=== PATIENT | male | born 1950 | race Caucasian/White ===

== ENCOUNTER 2016-10-01 20:54 | Inpatient (IN) | payer MEDICARE ==
--- NOTE | ~2016-10-01 | IDS ---
Interim Discharge Summary [facility] [address] [place]. [address] NAME: MCKAY CHU JR : 54 STATUS : ADM IN PAT#: [id number] AGE: 66 ADM/REG DATE : 10/01/16 MR#: [id number] REPORT SERV DATE: 10/05/16 DICTATED BY: DAVID ZULUAGA DATE: 10/05/16 REPORT STATUS : Draft TRANSCRIBED BY: MODL DATE: 10/05/16 ADMISSION DATE: 10/01/2016 DISCHARGE DATE: COMPRESSOR MECHANIC BUS: Tommy Colon MD, Neurology. PROBLEM LIST: 1. Encephalopathy, unclear etiology. 2. Diabetes mellitus type 2, uncontrolled with A1c 13.7%. 3. Fatty liver. 4. Pancytopenia. 5. Bipolar disorder. 6. 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 7. History of previous chronic systolic congestive heart failure. Current ejection fraction of 55%. 8. History of Crohn disease. 9. History of hypertension. 10.Status post acute kidney injury with hyperkalemia, resolved. 11.History of coronary stenting. 12.Bipolar disorder. HISTORY: This patient was traveling with family in [place], reportedly at one point in time, may have mixed up his day and night medications and began to not feel well, having some report of slurred speech, confusion was noted by family, so he was brought to the emergency room at [facility]. His initial labs were concerning because his sodium was 128, potassium 5.9, BUN 31, and creatinine 1.55. His liver enzymes were mildly elevated. His lactic acid was elevated at 3.6. His blood sugar was 435. His Depakote, ammonia, and lithium levels were unremarkable, but he was referred to our team for inpatient care. His blood sugars are doing better with insulin. He was too confused for the educator senior clinical to really educate him and he has been resistant initially to the idea of insulin at home. As far as his confusion, he was seen by Neurology, Dr. Colon, and his evaluation for confusion included MRI and MRA of brain which revealed chronic small vessel changes, but no acute infarction. 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 MRA of the [place], otherwise, normal. MRA of the neck was unremarkable. Abdominal ultrasound revealed a markedly fatty liver. There was a hypoechoic area in the left lobe and some gallstones. There was concern that he might have cirrhosis with his pancytopenia. The patient's CT of abdomen and pelvis on 10/03/2016 revealed fatty liver and cholelithiasis, but no abnormalities were otherwise noted. The patient's Depakene level was less than 3, lithium level was 1.13, serum lactic acid was elevated at 3.6, and a followup the next day was 1.0. Procalcitonin was initially elevated at 2.75, followup 1.41, Interim Discharge Summary [facility] [address] [place]. [address] NAME: MCKAY CHU JR : 54 STATUS : ADM IN PAT#: [id number] AGE: 66 ADM/REG DATE : 10/01/16 MR#: [id number] REPORT SERV DATE: 10/05/16 DICTATED BY: DAVID ZULUAGA DATE: 10/05/16 REPORT STATUS : Draft TRANSCRIBED BY: MODBull DATE: 10/05/16 subsequently 1.10. Because of his initial presentation with lactic acid, we have had him on antibiotics, but to this point, his cultures of blood have had no growth and his urinalysis from admission only showed glucosuria and rare bacteria. Neurology has been considering a lumbar puncture for further analysis, but they state they may not proceed with that if he continues to clear neurologically. His confusion and agitation have improved. He still does have slight myoclonus. He is very cooperative, much more calm. His RPR was nonreactive. Urine drug screen was negative. We have Psychiatry consulted and anticipated to see him on 10/06/2016. On the evening of 10/04/2016, he developed abdominal pain in the periumbilical area, very intense. He got some Mylanta p.r.n. and Levsin, which he reported gave him some improvement. On that same day, he has had three bowel movements. We have put him on lactulose because his serum ammonia level had been mildly elevated. However, after the abdominal pain started, he has had no further bowel movements. He is passing gas, but he is distended and tympanic, so we are getting a CT scan to see if he has a partial small bowel obstruction. He has had prior surgery in his left groin for hernia. There is no sign of hernia on physical exam, standing on either left or right side, but he is tympanic with hypoactive bowel sounds and mildly tender. We will also ask his GI, Dr. Silverman, to see him as well. At some point in time, we are going to have to either train him on insulin if he is agreeable or try oral agents and have his PCP follow him. Currently, it sounds like he has been treating his GI, Dr. Silverman, as a PCP, so probably it would be banda for him to have a PCP arranged for in the future. RSG/MODL David Zuluaga M.D. / [id number] CC: David Zuluaga M.D.
--- NOTE | ~2016-10-01 | ECH ---
Echocardiogram [address] [address] NAME: MCKAY CHU JR : 54 STATUS : ADM IN PAT#: [id number] AGE: 66 ADM/REG DATE : 10/01/16 MR#: [id number] REPORT SERV DATE: 10/03/16 DICTATED BY: ANNY GAO DATE: 10/02/16 REPORT STATUS : Draft TRANSCRIBED BY: MODL DATE: 10/02/16 ORDERING: Dr. Porras. INDICATIONS: Possible stroke. STUDY QUALITY: Good. MEASUREMENTS (in cm) Aortic Root = 3.4. Septal Wall = 1.1 Posterior Wall = 1.1 LV Diastolic = 5.2 LV Systolic = 3.6 Left Atrium = 4.1 LALO: 23 mL/m square. LVEF: By English's method 52% (may differ from visual estimation of LVEF). E/A: 1.2. 2D DOPPLER: 1. Aortic Valve: Trileaflet with normal excursion. 2. Aortic Root: Normal. 3. Mitral Valve: Morphologically normal without prolapse. 4. Tricuspid Valve: Morphologically normal without prolapse. 5. Pulmonic Valve: Grossly normal. 6. Left Ventricle: No high-grade segmental wall motion abnormalities. Ejection fraction is estimated to be in the range of 55%. 7. Right Ventricle: Normal. 8. Pericardial Space: No effusion. 9. Intracardiac Masses: None. 10.Other: None. DOPPLER/COLOR FLOW: 1+ MR. 2+ MR. 1+ TR. 1+ MO. Bubble study does not demonstrate transseptal flow at rest nor during Valsalva. FINAL IMPRESSION: 1. Normal LV wall thickness and size. 2. Normal LVEF without segmental wall motion abnormalities. 3. Normal diastolic function. 4. Mild valvular regurgitations as defined. 5. No evidence of transatrial septal flow. /MODL Anny Gao M.D. Echocardiogram [address] [address] NAME: MCKAY CHU : 54 STATUS : ADM IN PAT#: [id number] AGE: 66 ADM/REG DATE : 10/01/16 MR#: [id number] REPORT SERV DATE: 10/03/16 DICTATED BY: ANNY GAO DATE: 10/02/16 REPORT STATUS : Draft TRANSCRIBED BY: KIANNA DATE: 10/02/16 / [id number] CC: Tyrone Zuluaga M.D.
--- NOTE | ~2016-10-01 | HP ---
History And Physical [place] [address] [facility] [place]. [address] NAME: MCKAY CHU JR : 54 STATUS : ADM Thais PAT#: [id number] AGE: 66 ADM/REG DATE : 10/01/16 MR#: [id number] REPORT SERV DATE: 10/02/16 DICTATED BY: ADELE HERRON DATE: 10/01/16 REPORT STATUS : Draft TRANSCRIBED BY: MODL DATE: 10/01/16 DATE OF ADMISSION: 10/01/2016 POINT OF ENTRY: [facility] Emergency Department. PRIMARY CARE PHYSICIAN: Dr. Bob Silverman. PRIMARY CHESTNUT TANNER: Dr. Gao. PRIMARY PSYCHIATRIST: Dr. Glass. CHIEF COMPLAINT: Altered mental status and slurred speech. HISTORY OF PRESENT ILLNESS: Mr. Chu is a 66-year-old gentleman with a history of bipolar disease, coronary disease, chronic systolic congestive heart failure, and other medical comorbidities, who presents to the emergency department today with reports of difficulties speaking as well as confusion. The patient states that he went out of town on a trip to [facility] with his brother over the weekend. At some point during the trip, the patient took his evening medications during the day time. Shortly after that medication misadministration, the patient started to generally feel unwell. When asked for specifics, he stated that he was having difficulty speaking, described as slurred speech. He denied any fevers, night sweats, chills, chest pain, palpitations, shortness of breath, cough, sputum production, abdominal pain, nausea, vomiting, diarrhea, constipation, dysuria, lower extremity edema, melena, hematochezia, hemoptysis, or hematemesis. His sister who was at bedside states that even over the past 12 hours she has noted that his slurred speech has improved dramatically as is his confusion. Initial evaluation in the emergency department notable for a CT scan of the brain that was unremarkable. Labs markedly abnormal including a sodium of 128, potassium 5.9, evidence of dehydration with a BUN of 31, creatinine 1.55. He has also had some mild transaminitis as well as mild elevated lactic acid level of 3.6. His Depakote, ammonia level, and lithium levels were all unremarkable. His sugar also elevated at 435. The patient was given a liter of IV fluids and admitted to the Hospitalist Service. REVIEW OF SYSTEMS: Comprehensive review of systems otherwise negative unless listed in history of present illness. PREVIOUS MEDICAL HISTORY: 1. Bipolar disease. 2. Crohn disease. No longer on active therapy. 3. Eji-huyajyn-ixbzldjak diabetes mellitus type 2. No longer on active medications. 4. Hypertension. History And Physical [address] [place]. [address] NAME: MCKAY CHU JR : 54 STATUS : ADM Thais PAT#: [id number] AGE: 66 ADM/REG DATE : 10/01/16 MR#: [id number] REPORT SERV DATE: 10/02/16 DICTATED BY: ADELE HERRON DATE: 10/01/16 REPORT STATUS : Draft TRANSCRIBED BY: KIANNA DATE: 10/01/16 5. Coronary artery disease with prior PCI. 6. Chronic systolic congestive heart failure with last ejection fraction of 45%. 7. 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 8. History of right brainstem cerebrovascular accident. 9. Chronic left bundle-branch block. 10.Diabetic neuropathy. SURGICAL HISTORY: 1. Cardiac PCI. 2. Hernia repair. ALLERGIES: PENICILLIN AND SULFA DRUGS. HOME MEDICATIONS: 1. Xanax 0.5 mg q.i.d. p.r.n. 2. Aspirin 81 mg daily. 3. Carvedilol 25 mg b.i.d. 4. Plavix 75 mg daily. 5. Depakote 500 mg at bedtime. 6. Cymbalta 90 mg daily. 7. [place] 625 mg at bedtime. 8. Losartan 100 mg daily. 9. Nitroglycerin 0.4 mg sublingual p.r.n. 10.Seroquel 50 mg at bedtime. 11.Rosuvastatin 10 mg daily. 12.Ambien 10 mg at bedtime. SOCIAL HISTORY: He does smoke about a half pack per day. Occasional alcohol intake. Denies illicits. FAMILY MEDICAL HISTORY: Mother with coronary artery disease and diabetes. Father with coronary artery disease and dementia. Sibling with diabetes. LABS AND IMAGIN. White count 3.3, hemoglobin is 12.7, hematocrit 36.5, and platelet count is 103. INR is pending. 2. Sodium is 128, potassium 5.9, chloride 95, carbon dioxide 24, BUN 31, creatinine 1.55, glucose is 435, calcium is 8.4, protein 6.8, albumin is 2.7, bilirubin 1.0, ALT is 86, AST 111, alkaline phosphatase is 121. 3. Troponin level is less than 0.02. 4. Ammonia level is 29. [place] level is 1.13. Depakote level is undetectable. 5. Urinalysis: Spec gravity 1.016, positive glucose, positive trace ketones, but no evidence of any infection. 6. Lactic acid level 3.6. 7. EKG per my review shows left bundle-branch block with left axis deviation, but normal sinus rhythm. No evidence of any acute ischemia or infarction. No hyperacute T-wave History And Physical [address] [address] NAME: MCKAY CHU JR : 54 STATUS : ADM Thais PAT#: [id number] AGE: 66 ADM/REG DATE : 10/01/16 MR#: [id number] REPORT SERV DATE: 10/02/16 DICTATED BY: ADELE HERRON DATE: 10/01/16 REPORT STATUS : Draft TRANSCRIBED BY: KIANNA DATE: 10/01/[address] scan of the brain per overnight virtual radiology read shows no acute intracranial abnormality. 9. Chest x-ray per my review shows no acute cardiopulmonary abnormality. PHYSICAL EXAMINATION: VITAL SIGNS: Temperature is 98.0 degrees Fahrenheit, pulse is 68, respirations 12 saturating 95% on room air. Blood pressure is 87/53. On recheck, blood pressure now 103/60, pulse of 97. GENERAL: The patient is awake, alert, in no acute distress. Resting comfortably in bed. He is a well-developed, well-nourished, male. HEENT: Atraumatic and normocephalic. Moist mucous membranes. Pupils are equal, round, reactive to light and accommodation. Extraocular eye movements intact. No scleral icterus. NECK: No jugular venous distention. No carotid bruits. The patient does have a right-sided EJ IV catheter in place. CARDIAC: Regular rate and rhythm. No murmurs, rubs, or gallops. Normal S1, S2. LUNGS: Clear to auscultation bilaterally. No wheezes, rhonchi, or crackles. ABDOMEN: Soft, nontender, nondistended with good bowel sounds. No rebound, guarding, or rigidity. EXTREMITIES: Warm, perfused. No cyanosis, clubbing, or edema. SKIN: Warm and dry. PSYCH: Affect is appropriate. NEURO: Alert and oriented x3. Cranial nerves 2 through 12 grossly intact. Upper and lower strength also grossly intact. Speech is somewhat dysarthric but understandable. Gait was not assessed. ASSESSMENT: Mr. Chu is a 66-year-old gentleman who presents with a few days of generally feeling unwell as well as slurred speech and confusion and found to have evidence of hyperglycemia, transaminitis, dehydration, hyperkalemia, as well as hyponatremia. PROBLEM LIST: 1. Dysarthria, concerning for possible cerebrovascular accident versus TIA. 2. Hyperglycemia. 3. Hyponatremia. 4. Hyperkalemia. 5. Dehydration. 6. Transaminitis. 7. Pancytopenia. 8. Elevated lactic acid level. 9. History of bipolar disease. 10.History of chronic systolic congestive heart failure. PLAN: 1. Dysarthria. Differential is very broad at this time including possible CVA versus TIA versus toxic metabolic effects from his multiple electrolyte derangements versus possible medication effect versus contribution from his underlying psychiatric disease. We will address his underlying toxic metabolic derangements overnight. We will order History And Physical [address] [place]. [address] NAME: MCKAY CHU JR : 54 STATUS : ADM Thais PAT#: [id number] AGE: 66 ADM/REG DATE : 10/01/16 MR#: [id number] REPORT SERV DATE: 10/02/16 DICTATED BY: ADELE HERRON DATE: 10/01/16 REPORT STATUS : Draft TRANSCRIBED BY: MODBull DATE: 10/01/16 MRI, MRA, as well as Neurology consultation. The patient is not currently confused nor sedated, therefore, I will not adjust his psychiatric medications at this time especially in light of normal serum drug levels. 2. Hyperglycemia. The patient has a history of wxc-ktykcdh-gwzvvclgv diabetes mellitus type 2 but no longer on active medications. He will receive 5 units of IV insulin here as well as IV fluid hydration. Place him on level 2 sliding scale and check hemoglobin A1c. 3. Transaminitis, unclear etiology at this time. Checking right upper quadrant ultrasound as well as viral hepatitis panel. 4. Elevated lactic acid level. The patient did present with some mild hypotension. I suspect this is all due to hypoperfusion, which now seems to have improved. We will repeat lactic acid level after receipt of IV fluids. 5. Pancytopenia, again unclear etiology, may be medication related. Checking iron studies, folate, vitamin B12, viral hepatitis panel, as well as HIV. Continue to monitor. 6. Acute kidney injury and dehydration. Holding patient's losartan, providing IV fluid hydration, checking urine lytes. 7. Hyperkalemia. No EKG changes at this time. Place the patient on cardiac telemetry monitoring. Holding losartan. I suspect this will improve dramatically with IV fluids as well as correction of the hyperglycemia with IV insulin. 8. Hyponatremia. Again, I suspect this is mainly due to his hyperglycemia but checking urine lytes as well as serum osmolality as well as a.m. cortisol level. Providing IV fluid hydration. 9. History of bipolar disease. The patient does report some recent changes in lithium dosing but his lithium level here is within normal limits. Does not appear to have either severe depression or manic episode at this time. We will hold off on Psychiatry consultation. 10.History of chronic systolic congestive heart failure. The patient currently appears euvolemic to me at this time. Provide gentle fluid hydration. Chest x-ray is clear. We will check a BNP level. 11.DVT prophylaxis. Lovenox subcu. CODE STATUS: The patient wished to be full code. JCB/MODL Adele Herron MD / [id number] CC: Tyrone Zuluaga M.D. Christopher Perez M.D.
--- NOTE | ~2016-10-01 | DS ---
Discharge Summary [facility] [address] [place]. [address] NAME: MCKAY CHU JR : 54 STATUS : DIS IN PAT#: [id number] AGE: 66 ADM/REG DATE : 10/01/16 MR#: [id number] REPORT SERV DATE: 10/07/16 DICTATED BY: DAVID ZULUAGA DATE: 10/06/16 REPORT STATUS : Draft TRANSCRIBED BY: MODL DATE: 10/06/16 ADMISSION DATE: 10/01/2016 DISCHARGE DATE: 10/06/2016 CONSULTANTS: Dr. Colon, Neurology; Dr. Juanjose Arriaga, Psychiatry. DISCHARGE DIAGNOSES: 1. Encephalopathy, unclear etiology, but suspected to be a combination of medications and #2. 2. Bipolar disorder. 3. Fatty liver. 4. Colonic ileus. 5. Pancytopenia with some improvement near discharge. 6. 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 7. History of previous chronic systolic congestive heart failure with current ejection fraction improved to 55%. 8. History of Crohn disease. 9. Hypertension. 10.Acute kidney injury with hyperkalemia, improved, off Cozaar. 11.History of coronary stents. HISTORY: This gentleman was traveling with family in the [facility] area and reportedly at one point may have mixed up his day and night medications. May have also taken additional Xanax. He reportedly did not feel well, had some slurred speech, some confusion. Because of this, he was brought to the Emergency Room at [facility]. His initial lab assessment had sodium 128, potassium 5.9, BUN 31, creatinine 1.55. His liver enzymes were mildly elevated with an alkaline phosphatase of 121, his ALT was 86, his AST was 111. His lactic acid was elevated at 3.6, blood sugar 435. Evaro level was 1.13. His Depakene level was less than 3.0. His initial ammonia was 29. He was referred to our team for inpatient care. His blood sugars are doing better with insulin. He initially was too confused for the composition tile layer to give him much education. Now that he is no longer confused, he states he is not willing to stay any longer. He will get diabetic education in some fashion as an outpatient. He is still not willing to take insulin. He states he has a glucose meter. He will check his sugars. He will take the diabetic tablets that we are prescribing, and he will follow up with Dr. Silverman, his GI, and he is planning to get a new GI to help him with his diabetes. As far as his confusion, he was seen by Neurology, Dr. Colon. His evaluation for the confusion included MRI and MRA of the brain, which revealed chronic small vessel changes, but no acute infarction. 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 MRA of the [place] otherwise unremarkable. MRA of the neck unremarkable. Abdominal ultrasound revealed markedly fatty liver. There was a hypoechoic area in the left lobe of Discharge Summary [place] [address] [place] [place]. [address] NAME: MCKAY CHU JR : 54 STATUS : DIS IN PAT#: [id number] AGE: 66 ADM/REG DATE : 10/01/16 MR#: [id number] REPORT SERV DATE: 10/07/16 DICTATED BY: DAVID ZULUAGA DATE: 10/06/16 REPORT STATUS : Draft TRANSCRIBED BY: KIANNA DATE: 10/06/16 the liver with some gallstones. Clinically, we had some concern that he might have cirrhosis because he had pancytopenia and elevated liver enzymes, however, his CT abdomen and pelvis on 10/03/2016 just revealed fatty liver and cholelithiasis, but otherwise unremarkable. The patient's followup lactic acid level came down to normal at 1.0. His procalcitonin was initially elevated at 2.71, followup at 1.41, and subsequently 1.0. Because of the combination of elevated lactic acid and elevated procalcitonin, he was placed on antibiotic Rocephin and blood cultures were drawn. His blood cultures have had no growth. His urinalysis on admission had only rare bacteria and glucose. Neurology was considering lumbar puncture for further analysis, but as his mental status improved with time and withholding his Depakote, Neurology decided to not do the lumbar puncture. So, they restarted his Plavix thereafter. His confusion and agitation are gone. He has resolved his myoclonus. He is very calm. His RPR is nonreactive. Urine drug screen was negative. Psychiatry, Dr. Arriaga saw him and felt the patient had an unspecified delirium possibly from medication administration incorrectly as an outpatient. He felt he had bipolar disorder and he recommended him to follow up with Dr. Glass, his primary psychiatrist. We also did RPR, which was not reactive; checked hepatitis A, B, and C and HIV, all of these were not reactive. On 10/04/2016, he developed abdominal pain, distention. Mylanta and Levsin gave only minimal improvement. When I saw him, he was passing gas, but was distended and tympanic, so we did do a CT scan of the abdomen and pelvis as a repeat on 10/05/2016. It revealed mild to moderate distention of the colon to the level of the proximal sigmoid with no discrete transition zone suggesting mild large bowel ileus. No small bowel dilatation was noted. Subsegmental atelectasis or linear fibrosis right middle lobe. A 2- to 3-mm noncalcified pulmonary nodules in each lung base (this needs to be followed up by his PCP). Cholelithiasis was found, but no evidence of cholecystitis. Had normal-appearing appendix in the right lower quadrant. Trace of ascites. On 10/06/2016, he stated he was hungry. He was not nauseated. He was passing gas. He had had a bowel movement. He wanted to move from liquid diet onto solids. However, he had very little if any bowel sounds. Abdomen was still mild to moderately distended and tympanic. I recommended that he stay, let us work on that, have Dr. Silverman, his GI, see him. He stated that his abdomen did not bother him that much and he would see Dr. Silverman as an outpatient. I stressed to him that we still felt we needed to give him more diabetic education. He stated that he felt he could get that as an outpatient, and he was not willing to stay any longer. He was polite, he was calm, but he was quite definitive about this. DISCHARGE MEDICATIONS: Aspirin 81 mg daily, Coreg 25 mg b.i.d., Plavix 75 mg daily, Cymbalta 90 mg daily, lithium carbonate (Eskalith CR) 675 mg at bedtime, nicotine patch over-the- counter to try to stop smoking, Seroquel 50 mg at bedtime, Tylenol 650 q.6 hours p.r.n. pain or fever, Xanax 0.5 mg q.i.d. p.r.n. anxiety which is a chronic medicine for him, nitroglycerin 0.4 mg sublingual p.r.n. chest pain, Crestor 10 mg daily, glipizide 5 mg b.i.d. with meals, metformin 1000 mg b.i.d. Discharge Summary [address] [place]. [address] NAME: MCKAY CHU JR : 54 STATUS : DIS IN PAT#: [id number] AGE: 66 ADM/REG DATE : 10/01/16 MR#: [id number] REPORT SERV DATE: 10/07/16 DICTATED BY: DAVID ZULUAGA DATE: 10/06/16 REPORT STATUS : Draft TRANSCRIBED BY: MODL DATE: 10/06/16 We had recommend he stay off the Depakote, because while he was here, his ammonia level did go up. We are also recommending he stay off the Cozaar because he had elevated creatinine and potassium when he first came in here. I spent 57 minutes today with the patient and with discharge planning. DICTATED BY: Christopher Lu/KIANNA David Zuluaga M.D. / [id number] CC: Christopher Lu M.D. Michael Goodman, M.D. LEE SOLOMON
--- NOTE | ~2016-10-01 | CN ---
Consultation Report [facility] [address] [place]. [address] NAME: MCKAY CHU JR : 54 STATUS : ADM Thais PAT#: [id number] AGE: 66 ADM/REG DATE : 10/01/16 MR#: [id number] REPORT SERV DATE: 10/02/16 DICTATED BY: DATE: REPORT STATUS : Draft TRANSCRIBED BY: MODL DATE: 10/02/16 NEUROLOGY CONSULTATION DATE OF CONSULTATION: 10/02/2016 REASON FOR CONSULT: Confusion and dysarthria. HISTORY OF PRESENT ILLNESS: This is a 66-year-old male who presented to [facility] on 10/01/2016, secondary to confusion and dysarthria. The patient gave a story of going to a trip to [facility] with his brother. During the trip, the patient had his pill box with him but apparently has filled it incorrectly. As a result, the patient was taking his night medications during the day and the patient attributes that to be the reason for his confusion and dysarthria. The patient reports symptom improvement but does not appear to have resolution of the symptom. The patient also complains of dizzy as if he is about to pass out when standing up, otherwise, denies any fever, chill, nausea, vomiting, chest pain, or shortness of breath. The patient, other than a trip to [facility], denies any recent other long distance stress and denies any recent sick contact. The patient, other than confused medication intake, does not have any other changes in medications. The patient reports still having dizzy type of sensation when standing up, but otherwise no other complaints. REVIEW OF SYSTEMS: Negative except for those mentioned in the HPI. PAST MEDICAL HISTORY: Significant for bipolar disorder, Crohn's disease. Apparently not on any active therapy at the moment. Diabetes type 2. Hypertension. Coronary artery disease as well as history of congestive heart failure with the last EF of 45%. 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 The patient has had previous history of right brainstem stroke and baseline he is on aspirin as well as Plavix. The patient does have chronic left bundle branch block and diabetic neuropathy. FAMILY HISTORY: Significant for coronary artery disease, diabetes as well as dementia. SOCIAL HISTORY: The patient does still continue tobacco usage. He reports only occasional alcohol intake. Denies illicit drug usage. ALLERGIES: THE PATIENT REPORTS ALLERGY TO PENICILLIN WELL SULFA MEDICATION. HOME MEDICATIONS: Consist of Xanax; aspirin; Plavix; Coreg; Depakote; Cymbalta; lithium; Cozaar; nitroglycerin; Seroquel; Crestor; and Ambien. Again review of systems otherwise negative except for those mentioned in the HPI. PHYSICAL EXAMINATION: Consultation Report [facility] [address] [place]. [address] NAME: MCKAY CHU JR : 54 STATUS : ADM Thais PAT#: [id number] AGE: 66 ADM/REG DATE : 10/01/16 MR#: [id number] REPORT SERV DATE: 10/02/16 DICTATED BY: DATE: REPORT STATUS : Draft TRANSCRIBED BY: MODL DATE: 10/02/16 VITAL SIGNS: At the time of evaluation and physical examination, the patient was noted to have vital signs with T-max of 99.0, heart rate of 66 to 72, respiration of 14 to 18, blood pressure after hospital admission was 111 to 152 over 54 to 69. The patient, upon ER presentation, was noted to have hypotension with blood pressure of 87 to 98 over 46 to 53. GENERAL: The patient is otherwise well developed, well nourished, in no acute distress. CARDIOVASCULAR: Regular rate and rhythm. No carotid bruits were otherwise auscultated. PULMONARY: Examination was clear to auscultation bilaterally. NEUROLOGICAL EXAMINATION: Generally, the patient was awake, oriented to person, place, year, and month. Also, the patient was noted to have difficulties with turning off the TV using the remote and was noted to have difficulties clearly to articulate reason for hospital admission as well as history of present illness with the patient noted to have some mild word-finding difficulties at times and seems at time to be confused about what is going on. The patient was noted to have mild decreased attention span at the time of evaluation and has some difficulties with recall, but the patient is able to follow most of the two-step commands as well as simple commands. Cranial nerves 2 through 12, pupils equal, round, and reactive to light. Horizontal and vertical eye movement was noted to be intact with the patient noted to have mild decreased nasolabial fold on the left. Reports symmetrical facial sensation. Midline tongue. Normal palatal movement. Mild decreased hearing in bilateral ears. No clear asterixis was noted. Mild tremor was seen. The patient was not noted to have any overt rigidity at the time of evaluation. A 5/5 bilateral upper extremity strength and bilateral lower extremity strength was noted at the time of evaluation. Normal finger-to- nose examination without ataxia. The patient was noted to have decreased sensation in bilateral lower extremity, however deep tendon reflex was 3+ throughout. Downgoing toe on bilateral plantar reflexes. The patient was noted to have some mild ataxia at the time of evaluation. LABORATORY STUDIES: Demonstrated white blood cell count of 3.8, hemoglobin of 11.6, and hematocrit of 102. The patient was noted to have a procalcitonin level of 2.75, sodium of 136, potassium of 4.0, chloride 104, bicarb of 19, BUN of 20, creatinine of 0.85, glucose of 243, and calcium of 8.2. Serum cholesterol of 96, HDL 114, LDL of 28, and triglyceride of 270. Serum ammonia level of 29. The patient was noted to have folate of 28.6, and vitamin B12 was 695. Serum TSH of 5.92. Hepatitis panel is negative. HIV is negative. The patient's urine drug screen is otherwise negative with urinalysis demonstrated negative leukocyte esterase, negative nitrite. The patient's MRI of the brain otherwise demonstrated no acute process with MRA of the head and neck demonstrated no significant vascular stenosis. IMPRESSION: 1. Encephalopathy improved but still appeared to be somewhat confused at the time of evaluation with the patient noted to have some word-finding difficulties as well as difficulties to articulate clear HPI. The patient presented to [facility] with hypotension, systolic blood pressure in the 80s although has improved overnight. The patient in addition was also noted to have elevated procalcitonin level. Concern for possible alcohol infection. We will check laboratory study. We will hold Plavix in case the patient requires lumbar puncture. Consultation Report [facility] [address] [place]. [address] NAME: MCKAY CHU : 54 STATUS : ADM Thais PAT#: [id number] AGE: 66 ADM/REG DATE : 10/01/16 MR#: [id number] REPORT SERV DATE: 10/02/16 DICTATED BY: DATE: REPORT STATUS : Draft TRANSCRIBED BY: MODL DATE: 10/02/16 2. We will also obtain EEG as well as orthostatic vitals. RECOMMENDATIONS: 1. Hold Plavix. 2. EEG. 3. TSH, free T4, procalcitonin level as well as serum RPR with morning labs. 4. We will check orthostatic vitals every shift. 5. May consider lumbar puncture. [facility]/MODL Tommy Colon MD / [id number] CC: Tyrone Zuluaga M.D.
--- NOTE | ~2016-10-01 | CN ---
Consultation Report [facility] [address] [place]. [address] NAME: MCKAY CHU JR : 54 STATUS : ADM IN PAT#: [id number] AGE: 66 ADM/REG DATE : 10/01/16 MR#: [id number] REPORT SERV DATE: 10/06/16 DICTATED BY: JUANJOSE ENGEL DATE: 10/06/16 REPORT STATUS : Draft TRANSCRIBED BY: KIANNA DATE: 10/06/16 PSYCHIATRIC CONSULTATION I REVIEWED THE PATIENT'S CURRENT AND OLD MEDICAL RECORD. DATE OF CONSULTATION: 10/06/2016 HISTORY OF PRESENT ILLNESS: He was admitted with dysarthria and confusion. I was consulted to address his psychotropic regimen. PAST PSYCHIATRIC HISTORY: He has experienced recurring episodes of depression and hypomania for over 40 years. He reported one suicide attempt by overdose at the age of 23. In recent years, he has been followed by psychiatrist, Nic Glass M.D. HOME MEDICATION LIST: Included Xanax 0.5 mg q.i.d. p.r.n., Depakote 500 mg q.h.s., Cymbalta 90 mg daily, Eskalith CR 675 mg q.h.s., Seroquel 50 mg q.h.s., and Ambien 10 mg q.h.s. Since this admission, his Depakote has been discontinued because of a mild elevation of SGOT and alkaline phosphatase. Since his admission, his confusion and dysarthria have improved, and he is now back to baseline. He is most anxious for discharge to home. SOCIAL HISTORY: He lives by himself in [place], [place]. FAMILY HISTORY: His father may have had mood issues. MENTAL STATUS: He was very pleasant and cooperative in attitude. He was oriented to date, location, and persons. His mood was euthymic. His affect was full and appropriate. His thinking was logical. He had no delusions. He had no hallucinations. DIAGNOSES: 1. Delirium, now improved and back to baseline. 2. Bipolar disorder II. RECOMMENDATIONS: He thinks he might have mistakenly overdosed on his medications while he was on a trip to [facility]. He said he might have taken more Xanax than usual or perhaps he reversed his morning and bedtime dosing. I think this is the most likely explanation for the delirium, which is now improved. I agree with holding Depakote. It can be restarted later if needed for mood control, at Dr. Glass's discretion. He can be discharged to home from a psychiatric viewpoint. INOCENTE/KIANNA Juanjose Consultation Report [place] [id number] [facility] [place]. [address] NAME: MCKAY CHU JR : 54 STATUS : ADM IN PAT#: [id number] AGE: 66 ADM/REG DATE : 10/01/16 MR#: [id number] REPORT SERV DATE: 10/06/16 DICTATED BY: JUANJOSE ENGEL DATE: 10/06/16 REPORT STATUS : Draft TRANSCRIBED BY: MODL DATE: 10/06/16 Christopher Engel / [id number] CC: Christopher Lu M.D. LEE SOLOMON, MD
[2016-10-01 19:43] LABS: BASOPHILS 0.3 %; BASOPHILS ABSOLUTE 0.01 10/3/uL (0.0-0.16); EOSINOPHILS 0 %; ER CBC TAT 0 Hrs 11 Mins; HEMATOCRIT 36.5 % (40.0-51.0); HEMOGLOBIN 12.7 g/dL (13.6-17.8); IMMATURE GRANULOCYTES 0.6 %; IMMATURE GRANULOCYTES ABSOLUTE 0.02 10/3/uL (0.0-0.11); LYMPHOCYTES 18.1 %; MANUAL DIFF NO %; MEAN CORPUS HGB CONC 34.8 g/dL (32.0-36.0); MEAN CORPUSCULAR HEMOGLOB 30.4 pg (26.0-34.0); MEAN CORPUSCULAR VOLUME 87.3 fL (80-100); MEAN PLATELET VOLUME 9.7 fL (9.2-13.0); MONOCYTES 5.7 %; MONOCYTES ABSOLUTE 0.19 10/3/uL (0.21-1.20); NEUTROPHILS 75.3 %; NEUTROPHILS ABSOLUTE 2.49 10/3/uL (2.02-8.40); PLATELET COUNT 103 10/3/uL (150-400); RBC DISTRIBUTION WIDTH 12.7 % (12.0-16.0); RED CELL COUNT 4.18 10/6/uL (4.7-6.1); WHITE BLOOD CELLS 3.3 10/3/uL (4.5-10.5)
[2016-10-01 20:00] LABS: CALCIUM, SERUM 8.4 MG/DL (8.5-10.4); CHLORIDE, SERUM 95 MMOL/L (96-112); CREATININE 1.55 MG/DL (0.70-1.30); GFR AFRICAN AMERICAN 54 ML/MIN (>=60); GFR NON AFRICAN AMERICAN 47 ML/MIN (>=60); SGPT(ALT) 86 U/L (5-65); SODIUM, SERUM 128 MMOL/L (135-148); TOTAL PROTEIN 6.8 G/DL (6.0-8.5); TROPONIN I <0.02 NG/ML (<0.05)
[2016-10-01 20:01] LABS: A/G RATIO 0.7 (0.7-1.9); ALBUMIN 2.7 G/DL (3.5-5.0); ALKALINE PHOSPHATASE 121 U/L (45-117); BUN (BLOOD UREA NITROGEN) 31 MG/DL (6-23); CO2 (CARBON DIOXIDE) 24 MMOL/L (24-34); GLOBULIN 4.1 G/DL (2.5-4.1); GLUCOSE, SERUM 435 MG/DL (60-99); POTASSIUM, SERUM 5.9 MMOL/L (3.5-5.3); SGOT(AST) 111 U/L (5-40)
[~2016-10-01 20:54] MED LIST: AMARYL1 MG PO; AMB10 PO; ASAB PO; ASABAYER PO; BRILINTA90 MG PO; COREG12 PO; COZAAR100 MG PO; CRESTOR10 PO; CRESTOR20 MG PO; CYMBALTA60 PO; DEPAKOT250 PO; DEPAKOT500 PO; FISH OIL300 MG PO; GEODON20 PO; HUMIRA PEN SC; KLONO1 PO; KLONO2 PO; MULTIVITAMI1; NORV5 PO; OMEGA 3 6 9; PLAVIX PO; PROTONIX PO; SEROQUEL1C PO; VICODINTAB PO; VITAMIN D1000 UNI1 PO; VITAMIN E OTC PO; X5 PO; [UNRECOGNIZED DRUG - OTHER]
[2016-10-01] MEDS ORDERED: SEROQUEL50 MG PO (21:13)
[2016-10-01] MEDS ORDERED: CYMBALTA30 PO (21:14)
[2016-10-01] MEDS ORDERED: AMB10 PO (21:14)
[2016-10-01] MEDS ORDERED: COZAAR100 MG PO (21:15)
[2016-10-01] MEDS ORDERED: ESKACR PO (21:15)
[2016-10-01] MEDS ORDERED: CRESTOR10 PO (21:16)
[2016-10-01] MEDS ORDERED: NITROSTAT0.4 MG SL (21:16)
[2016-10-01] MEDS ORDERED: X5 PO (21:16)
[2016-10-01] MEDS ORDERED: HALF81 PO (21:17)
[2016-10-01] MEDS ORDERED: PLAVIX PO (21:17)
[2016-10-01] MEDS ORDERED: COREG25 PO (21:17)
[2016-10-01] MEDS ORDERED: DEPAKOT500 PO (21:17)
[2016-10-01 21:46] LABS: ASCORBIC ACID (UR NOT ORDER) NEG (NEG); BILIRUBIN, URINE NEGATIVE (NEG); ER URINALYSIS TAT 0 Hrs 00 Mins; KETONE, URINE 20 MG/DL (NEG); LEUKOCYTE ESTERASE(NOT OR NEG (NEG); NITRITE (URINE) NEG (NEG); WBC (NOT ORDERED) (RFLEX) 0 (0-5)
[2016-10-01 21:47] LABS: DEPAKENE (VALPROIC ACID) < 3.0 MCG/ML (50.0-100.0)
[2016-10-02 00:43] LABS: LACTATE 2.4 MMOL/L (0.3-2.4)
[2016-10-02 04:58] LABS: CREATININE, URINE 62.6 MG/DL; SODIUM, URINE 12 MEQ/L
[2016-10-02 05:08] LABS: AMPHETAMINES (NOT ORD) NEG (NEG); BARBITURATES (NOT ORDERED NEG (NEG); BENZODIAZEPINES (NOT ORD) NEG (NEG); CANNABINOIDS (THC) NEG (NEG); COCAINE (NOT ORDERED) NEG (NEG); OPIATES NEG (NEG); OSMOLALITY, URINE 414 MOSM/KG (50-1200); PHENCYCLIDINE(PCP) NEG (NEG); TRICYCLICS NEG (NEG)
[2016-10-02 08:45] LABS: BASOPHILS 0.3 %; BASOPHILS ABSOLUTE 0.01 10/3/uL (0.0-0.16); EOSINOPHILS 0.5 %; EOSINOPHILS ABSOLUTE 0.02 10/3/uL (0.0-0.53); HEMOGLOBIN 11.6 g/dL (13.6-17.8); IMMATURE GRANULOCYTES 0.3 %; IMMATURE GRANULOCYTES ABSOLUTE 0.01 10/3/uL (0.0-0.11); LYMPHOCYTES ABSOLUTE 0.91 10/3/uL (0.67-4.30); MANUAL DIFF NO %; MEAN CORPUS HGB CONC 34.1 g/dL (32.0-36.0); MEAN CORPUSCULAR HEMOGLOB 29.8 pg (26.0-34.0); MEAN CORPUSCULAR VOLUME 87.4 fL (80-100); MEAN PLATELET VOLUME 9.4 fL (9.2-13.0); MONOCYTES ABSOLUTE 0.19 10/3/uL (0.21-1.20); NEUTROPHILS 69.9 %; NEUTROPHILS ABSOLUTE 2.65 10/3/uL (2.02-8.40); PLATELET COUNT 102 10/3/uL (150-400); RED CELL COUNT 3.89 10/6/uL (4.7-6.1); WHITE BLOOD CELLS 3.8 10/3/uL (4.5-10.5)
[2016-10-02 08:57] LABS: INTERNATIONAL NORMAL RATI 1.2 UNITS (-); PARTIAL THROMBO TIME 33.6 SEC (22.5-37.2)
[2016-10-02 09:17] LABS: B NATRIURETIC PEPTIDE (BNP) 98.5 PG/ML (< 100.0)
[2016-10-02 09:35] LABS: ALBUMIN 2.5 G/DL (3.5-5.0); CALCIUM, SERUM 8.2 MG/DL (8.5-10.4); CHLORIDE, SERUM 104 MMOL/L (96-112); CPK (IF ELEVATED MB BANDS) 126 U/L (0-200); FERRITIN 2754 NG/ML (26-388); IRON BINDING CAPACITY 219 MCG/DL (250-450); IRON, SERUM 45 MCG/DL (35-150); PHOSPHORUS, SERUM 2.2 MG/DL (2.5-4.5); TRIGLYCERIDE 270 MG/DL (< 150); TROPONIN I <0.02 NG/ML (<0.05)
[2016-10-02 09:36] LABS: BUN (BLOOD UREA NITROGEN) 20 MG/DL (6-23); CHOL/HDL RATIO(NOT ORDER) 6.9 (0-5); CHOLESTEROL 96 MG/DL (< 200); CO2 (CARBON DIOXIDE) 19 MMOL/L (24-34); CREATININE 0.85 MG/DL (0.70-1.30); FOLATE 28.6 NG/ML (>5.2); GFR AFRICAN AMERICAN 107 ML/MIN (>=60); GFR NON AFRICAN AMERICAN 92 ML/MIN (>=60); GLUCOSE, SERUM 243 MG/DL (60-99); HDL CHOLESTEROL 14 MG/DL (> 39); LDL CHOLESTEROL 28 MG/DL (< 130); NON-HDL CHOLESTEROL 82 MG/DL (< 160); SODIUM, SERUM 136 MMOL/L (135-148)
[2016-10-02 09:42] LABS: HEPATITIS B SURFACE ANTIGEN NON-REACTIVE (NON-REACT)
[2016-10-02 10:09] LABS: HEPATITIS B CORE AB IGM NON-REACTIVE (NON-REAC)
[2016-10-02 10:11] LABS: HEP A ANTIBODY IGM NON-REACTIVE (NON-REACT); HIV COMBO NON-REACTIVE (NON REAC)
[2016-10-02 10:45] LABS: HEPATITIS C ANTIBODY NON-REACTIVE (NON-REACT)
[2016-10-02 10:56] LABS: GLYCOHEMOGLOBIN (HbA1c) 13.7 % (4.7-6.1)
[2016-10-02 11:28] LABS: PROCALCITONIN 2.75 ng/mL (<0.5)
[2016-10-02 16:21] LABS: TROPONIN I <0.02 NG/ML (<0.05)
[2016-10-02 16:23] LABS: CK-MB 2.2 NG/ML; CPK 103 U/L (0-200)
[2016-10-03 07:11] LABS: BASOPHILS 0.3 %; BASOPHILS ABSOLUTE 0.01 10/3/uL (0.0-0.16); EOSINOPHILS 2.8 %; EOSINOPHILS ABSOLUTE 0.11 10/3/uL (0.0-0.53); HEMATOCRIT 32.1 % (40.0-51.0); HEMOGLOBIN 11.1 g/dL (13.6-17.8); IMMATURE GRANULOCYTES 0.3 %; IMMATURE GRANULOCYTES ABSOLUTE 0.01 10/3/uL (0.0-0.11); LYMPHOCYTES 31.4 %; LYMPHOCYTES ABSOLUTE 1.25 10/3/uL (0.67-4.30); MEAN CORPUS HGB CONC 34.6 g/dL (32.0-36.0); MEAN CORPUSCULAR HEMOGLOB 30.2 pg (26.0-34.0); MEAN CORPUSCULAR VOLUME 87.2 fL (80-100); MEAN PLATELET VOLUME 9.1 fL (9.2-13.0); MONOCYTES 8.8 %; MONOCYTES ABSOLUTE 0.35 10/3/uL (0.21-1.20); NEUTROPHILS 56.4 %; NEUTROPHILS ABSOLUTE 2.25 10/3/uL (2.02-8.40); PLATELET COUNT 101 10/3/uL (150-400); RBC DISTRIBUTION WIDTH 12.9 % (12.0-16.0); RED CELL COUNT 3.68 10/6/uL (4.7-6.1)
[2016-10-03 07:12] LABS: MANUAL DIFF NO %
[2016-10-03 07:31] LABS: A/G RATIO 0.7 (0.7-1.9); ALBUMIN 2.4 G/DL (3.5-5.0); CALCIUM, SERUM 8.5 MG/DL (8.5-10.4); CHLORIDE, SERUM 107 MMOL/L (96-112); CREATININE 0.74 MG/DL (0.70-1.30); GFR AFRICAN AMERICAN 113 ML/MIN (>=60); GFR NON AFRICAN AMERICAN 97 ML/MIN (>=60); GLOBULIN 3.5 G/DL (2.5-4.1); POTASSIUM, SERUM 3.6 MMOL/L (3.5-5.3); SGOT(AST) 41 U/L (5-40); SGPT(ALT) 57 U/L (5-65); SODIUM, SERUM 138 MMOL/L (135-148); TOTAL PROTEIN 5.9 G/DL (6.0-8.5)
[2016-10-03 07:33] LABS: ALKALINE PHOSPHATASE 140 U/L (45-117); BUN (BLOOD UREA NITROGEN) 12 MG/DL (6-23); CO2 (CARBON DIOXIDE) 25 MMOL/L (24-34); GLUCOSE, SERUM 147 MG/DL (60-99); TOTAL BILIRUBIN 0.3 MG/DL (0-1.2)
[2016-10-03 08:37] LABS: PROCALCITONIN 1.41 ng/mL (<0.5)
[2016-10-04 05:02] LABS: BASOPHILS 0.2 %; BASOPHILS ABSOLUTE 0.01 10/3/uL (0.0-0.16); EOSINOPHILS 2.7 %; EOSINOPHILS ABSOLUTE 0.12 10/3/uL (0.0-0.53); HEMATOCRIT 33.6 % (40.0-51.0); HEMOGLOBIN 11.3 g/dL (13.6-17.8); IMMATURE GRANULOCYTES 0.5 %; IMMATURE GRANULOCYTES ABSOLUTE 0.02 10/3/uL (0.0-0.11); LYMPHOCYTES 31.3 %; LYMPHOCYTES ABSOLUTE 1.37 10/3/uL (0.67-4.30); MEAN CORPUS HGB CONC 33.6 g/dL (32.0-36.0); MEAN CORPUSCULAR HEMOGLOB 29.7 pg (26.0-34.0); MEAN CORPUSCULAR VOLUME 88.2 fL (80-100); MEAN PLATELET VOLUME 9.2 fL (9.2-13.0); MONOCYTES 8.7 %; MONOCYTES ABSOLUTE 0.38 10/3/uL (0.21-1.20); NEUTROPHILS 56.6 %; NEUTROPHILS ABSOLUTE 2.48 10/3/uL (2.02-8.40); RED CELL COUNT 3.81 10/6/uL (4.7-6.1); WHITE BLOOD CELLS 4.4 10/3/uL (4.5-10.5)
[2016-10-04 05:07] LABS: MANUAL DIFF NO %; PLATELET COUNT 135 10/3/uL (150-400)
[2016-10-04 05:11] LABS: A/G RATIO 0.7 (0.7-1.9); ALBUMIN 2.6 G/DL (3.5-5.0); CALCIUM, SERUM 8.7 MG/DL (8.5-10.4); CHLORIDE, SERUM 107 MMOL/L (96-112); CO2 (CARBON DIOXIDE) 27 MMOL/L (24-34); CREATININE 0.69 MG/DL (0.70-1.30); GFR AFRICAN AMERICAN 116 ML/MIN (>=60); GFR NON AFRICAN AMERICAN 100 ML/MIN (>=60); GLOBULIN 3.5 G/DL (2.5-4.1); POTASSIUM, SERUM 3.3 MMOL/L (3.5-5.3); SGOT(AST) 27 U/L (5-40); SGPT(ALT) 50 U/L (5-65); SODIUM, SERUM 142 MMOL/L (135-148); TOTAL PROTEIN 6.1 G/DL (6.0-8.5)
[2016-10-04 05:13] LABS: ALKALINE PHOSPHATASE 164 U/L (45-117); BUN (BLOOD UREA NITROGEN) 8 MG/DL (6-23); GLUCOSE, SERUM 96 MG/DL (60-99); TOTAL BILIRUBIN 0.9 MG/DL (0-1.2)
[2016-10-05 18:55] LABS: BASOPHILS 0.2 %; BASOPHILS ABSOLUTE 0.01 10/3/uL (0.0-0.16); EOSINOPHILS 1.2 %; EOSINOPHILS ABSOLUTE 0.07 10/3/uL (0.0-0.53); HEMOGLOBIN 12.6 g/dL (13.6-17.8); IMMATURE GRANULOCYTES 0.2 %; IMMATURE GRANULOCYTES ABSOLUTE 0.01 10/3/uL (0.0-0.11); LYMPHOCYTES 25.2 %; LYMPHOCYTES ABSOLUTE 1.53 10/3/uL (0.67-4.30); MEAN CORPUS HGB CONC 34.1 g/dL (32.0-36.0); MEAN CORPUSCULAR HEMOGLOB 29.9 pg (26.0-34.0); MEAN CORPUSCULAR VOLUME 87.7 fL (80-100); MEAN PLATELET VOLUME 9.3 fL (9.2-13.0); MONOCYTES 8.4 %; MONOCYTES ABSOLUTE 0.51 10/3/uL (0.21-1.20); NEUTROPHILS 64.8 %; NEUTROPHILS ABSOLUTE 3.95 10/3/uL (2.02-8.40); RED CELL COUNT 4.22 10/6/uL (4.7-6.1); WHITE BLOOD CELLS 6.1 10/3/uL (4.5-10.5)
[2016-10-05 18:56] LABS: MANUAL DIFF NO %; PLATELET COUNT 193 10/3/uL (150-400)
[2016-10-05 19:11] LABS: BUN (BLOOD UREA NITROGEN) 7 MG/DL (6-23); CALCIUM, SERUM 8.8 MG/DL (8.5-10.4); CHLORIDE, SERUM 104 MMOL/L (96-112); CO2 (CARBON DIOXIDE) 25 MMOL/L (24-34); CREATININE 0.88 MG/DL (0.70-1.30); GFR AFRICAN AMERICAN 105 ML/MIN (>=60); GFR NON AFRICAN AMERICAN 91 ML/MIN (>=60); POTASSIUM, SERUM 3.4 MMOL/L (3.5-5.3); SODIUM, SERUM 137 MMOL/L (135-148); TROPONIN I <0.02 NG/ML (<0.05)
[2016-10-05 19:14] LABS: GLUCOSE, SERUM 253 MG/DL (60-99)
[2016-10-06 06:25] LABS: BASOPHILS 0.2 %; BASOPHILS ABSOLUTE 0.01 10/3/uL (0.0-0.16); EOSINOPHILS 1.6 %; EOSINOPHILS ABSOLUTE 0.09 10/3/uL (0.0-0.53); HEMOGLOBIN 12.3 g/dL (13.6-17.8); IMMATURE GRANULOCYTES 0.4 %; IMMATURE GRANULOCYTES ABSOLUTE 0.02 10/3/uL (0.0-0.11); LYMPHOCYTES 29.2 %; LYMPHOCYTES ABSOLUTE 1.65 10/3/uL (0.67-4.30); MEAN CORPUS HGB CONC 34.2 g/dL (32.0-36.0); MEAN CORPUSCULAR HEMOGLOB 30.3 pg (26.0-34.0); MEAN CORPUSCULAR VOLUME 88.7 fL (80-100); MEAN PLATELET VOLUME 8.8 fL (9.2-13.0); MONOCYTES 10.6 %; NEUTROPHILS ABSOLUTE 3.28 10/3/uL (2.02-8.40); PLATELET COUNT 196 10/3/uL (150-400); RBC DISTRIBUTION WIDTH 13.2 % (12.0-16.0); RED CELL COUNT 4.06 10/6/uL (4.7-6.1); WHITE BLOOD CELLS 5.7 10/3/uL (4.5-10.5)
[2016-10-06 06:29] LABS: MANUAL DIFF NO %
[2016-10-06 06:40] LABS: A/G RATIO 0.8 (0.7-1.9); ALBUMIN 2.7 G/DL (3.5-5.0); ALKALINE PHOSPHATASE 145 U/L (45-117); BUN (BLOOD UREA NITROGEN) 5 MG/DL (6-23); CALCIUM, SERUM 8.5 MG/DL (8.5-10.4); CHLORIDE, SERUM 108 MMOL/L (96-112); CO2 (CARBON DIOXIDE) 24 MMOL/L (24-34); CREATININE 0.57 MG/DL (0.70-1.30); GFR AFRICAN AMERICAN 126 ML/MIN (>=60); GFR NON AFRICAN AMERICAN 109 ML/MIN (>=60); GLOBULIN 3.5 G/DL (2.5-4.1); GLUCOSE, SERUM 99 MG/DL (60-99); POTASSIUM, SERUM 3.2 MMOL/L (3.5-5.3); SGPT(ALT) 35 U/L (5-65); SODIUM, SERUM 141 MMOL/L (135-148); TOTAL BILIRUBIN 0.4 MG/DL (0-1.2); TOTAL PROTEIN 6.2 G/DL (6.0-8.5)
[2016-10-06 06:42] LABS: SGOT(AST) 21 U/L (5-40)
[2016-10-06] MEDS ORDERED: HABIT14 TOP (15:58)
[2016-10-06] MEDS ORDERED: CONSTULOSE PO (15:58)
[2016-10-06] MEDS ORDERED: T PO (15:59)
[2016-10-06] MEDS ORDERED: GLUCOTROL5 PO (16:03)
[2016-10-06] MEDS ORDERED: GLUCOPHAGE1000 MG PO (16:04)
== END 2016-10-06 17:14 | disposition home or self-care (01) | DRG 92 ==
LOC: ER 20:54 → 1SO 23:14
PROVIDERS: Hospitalist; Internal Medicine; Nurse Practitioner; Psychiatry & Neurology Neurology
DX: G92 Toxic encephalopathy (principal); I50.22 Chronic systolic (congestive) heart failure; D61.818 Other pancytopenia; N17.9 Acute kidney failure, unspecified; I11.0 Hypertensive heart disease with heart failure; E11.40 Type 2 diabetes mellitus with diabetic neuropathy, unspecified; E87.1 Hypo-osmolality and hyponatremia; K56.7 Ileus, unspecified; R47.1 Dysarthria and anarthria; E11.65 Type 2 diabetes mellitus with hyperglycemia; F31.9 Bipolar disorder, unspecified; I25.10 Atherosclerotic heart disease of native coronary artery without angina pectoris; E87.5 Hyperkalemia; K76.0 Fatty (change of) liver, not elsewhere classified; I45.10 Unspecified right bundle-branch block; T50.995A Adverse effect of other drugs, medicaments and biological substances, initial encounter; Y92.9 Unspecified place or not applicable; Z79.899 Other long term (current) drug therapy; F17.210 Nicotine dependence, cigarettes, uncomplicated; Z88.2 Allergy status to sulfonamides; Z88.0 Allergy status to penicillin; Z82.49 Family history of ischemic heart disease and other diseases of the circulatory system; Z83.3 Family history of diabetes mellitus
CPT/HCPCS: 70450; 70544; 70547; 70551-52; 71010; 74176; 74178; 76700; 80048; 80053; 80061; 80069; 80074; 80164; 80178; 80305; 81001; 82140; 82533; 82550; 82553; 82570; 82607; 82728; 82746; 82962; 83036; 83540; 83550; 83605; 83690; 83735; 83880; 83930; 83935; 84145; 84300; 84439; 84443; 84484; 85025; 85610; 85730; 86592; 87040; 87389; 93005; 93306; 96361; 96374; 99285; A9270-GY; J0610; J1980; Q9967

== ENCOUNTER 2016-10-16 14:44 | Inpatient (IN) | payer MEDICARE ==
--- NOTE | ~2016-10-16 | EEG ---
Electroencephalogram [facility] [address] [facility] [place]. [address] NAME: MCKAY CHU JR : 54 STATUS : ADM IN PAT#: [id number] AGE: 66 ADM/REG DATE : 10/16/16 MR#: [id number] REPORT SERV DATE: 10/20/16 DICTATED BY: DATE: REPORT STATUS : Draft TRANSCRIBED BY: MODL DATE: 10/20/16 NEUROLOGY EEG REPORT CLINICAL INDICATIONS: Encephalopathy. DESCRIPTION: This EEG was performed using 10/20 electrode placement system. During the EEG study, symmetric background activity with generalized slowing was seen. Predominant occipital rhythm of roughly 6 hertz. Photic stimulation was performed with some trace driving response. Hyperventilation was not performed secondary to the patient's underlying medical conditions and mental status. During the EEG study, the patient achieved drowsy state. No focal abnormalities, seizure activity, or seizure discharge was otherwise noted during the EEG evaluation. INTERPRETATION: This EEG study obtained during awake and drowsy state may be considered mildly abnormal secondary to presence of mild generalized slowing. No focal abnormalities, seizure activity, or seizure discharge was otherwise noted. Clinical correlation is recommended. [facility]/MODL Tommy Colon MD / [id number] CC: Bety Garcia M.D.
--- NOTE | ~2016-10-16 | DS ---
Discharge Summary [facility] [address] [place]. [address] NAME: MCKAY CHU JR : 54 STATUS : DIS IN PAT#: [id number] AGE: 66 ADM/REG DATE : 10/16/16 MR#: [id number] REPORT SERV DATE: 10/29/16 DICTATED BY: VALERIA MADISON DATE: 10/28/16 REPORT STATUS : Draft TRANSCRIBED BY: KIANNA DATE: 10/28/16 ADMISSION DATE: 10/16/2016 DISCHARGE DATE: 10/27/2016 DISCHARGE DIAGNOSES: 1. Acute bipolar decompensation. 2. Encephalopathy secondary to acute bipolar decompensation. 3. Acute kidney injury present on arrival. 4. Diabetes type 2. 5. Hypomagnesemia. 6. Hypertension. 7. [place] toxicity present on arrival. 8. Heme-positive stool. 9. Coronary artery disease. CONSULTATIONS: 1. Neurology. 2. Psychiatry. 3. Bob Silverman M.D., with GI. DISCHARGE DISPOSITION: Debra Rodriguez. DISCHARGE MEDICATIONS: 1. Xanax 0.25 mg one tablet p.o. b.i.d., 9 and 2 p.m., and 0.5 mg p.o. q.h.s. 2. Amlodipine 10 mg one tablet p.o. daily. 3. Aspirin 81 mg one tablet p.o. daily. 4. Lipitor 20 mg one tablet p.o. daily. 5. Coreg 25 mg one tablet p.o. b.i.d. 6. Pepcid 20 mg one tablet p.o. b.i.d. 7. Daily folic acid 1 mg. 8. Sliding scale insulin. 9. Lactulose 30 mL p.o. t.i.d. 10.Seroquel 100 mg one tablet p.o. b.i.d., at 9 and 4. 11.Seroquel 300 mg one tablet p.o. q.h.s. 12.Sodium bicarb 650 mg one tablet p.o. b.i.d. 13.Levemir 15 units subcu daily. 14.Tylenol 650 mg one tablet p.o. every 6 hours. 15.Xanax 0.5 mg p.o. four times a day p.r.n. anxiety. 16.Crestor 10 mg one tablet p.o. daily. 17.Plavix 75 mg one tablet p.o. daily. PERTINENT LABS INFORMATION: [place] level within normal limits at 0.71. EEG performed mildly abnormal with mild generalized slowing. No focal seizures. Repeat lithium at 0.53 with initial presentation levels at 2.14. Discharge Summary [place] [id number] [place]. [address] NAME: MCKAY CHU JR : 54 STATUS : DIS IN PAT#: [id number] AGE: 66 ADM/REG DATE : 10/16/16 MR#: [id number] REPORT SERV DATE: 10/29/16 DICTATED BY: VALERIA MADISON DATE: 10/28/16 REPORT STATUS : Draft TRANSCRIBED BY: KIANNA DATE: 10/28/16 HOSPITAL COURSE: Please see H and P for complete details of HPI. Briefly, Mr. Chu is a 66-year-old male with history of bipolar disease, who presents with acute kidney injury, severe confusion, and possible diarrhea on admission with creatinine elevation of 4.9. The patient was noted to be down and disoriented. On arrival, workup for creatinine was performed, the patient was improved with IV fluid hydration aggressively, but due to creatinine injury the patient also had lithium levels done and monitored, and was noted to be supratherapeutic. The patient's initial encephalopathy was thought secondary to uremia along with complicated by bipolar disease, as the patient's electrolytes and labs began to normalize and improve. Further workup with Neurology began to suggest more psychiatric involvement. The patient was evaluated, then Psychiatry believed this was possible psychiatric bipolar type breakthrough. The patient had multiple medication modifications while inpatient monitored, but was recommended to have inpatient Psych evaluation after blood sugars were better controlled. Creatinine showed improvement. The patient was evaluated and heme positive stools were evaluated by Dr. Silverman. He was showing improvement with improved appetite, interaction, but was still having occasional swings in mental status. Further workup with HSV was negative. Sepsis panel was VDRL negative. Spinal tap did not show any acute infection. Protein glucose was elevated, but negative for cryptococcus. No capsulated yeast on Uma ink. The patient was more interactive, more redirectable over the last 24 to 48 hours, was seen by this publications writer, and Dr. Arriaga believed that evaluation with inpatient psych would be appropriate. D/C planning took greater than 30 minutes with arrangement, EasyPostiliation, discussion with the patient. DICTATED BY: MD CORETTA Rivers/KIANNA Valeria Madison MD / [id number] CC: Valeria Madison MD
--- NOTE | ~2016-10-16 | HP ---
History And Physical [facility] [address] [place]. [address] NAME: MCKAY HCU JR : 54 STATUS : ADM IN PAT#: [id number] AGE: 66 ADM/REG DATE : 10/16/16 MR#: [id number] REPORT SERV DATE: 10/16/16 DICTATED BY: JOSEPH GIBSON DATE: 10/16/16 REPORT STATUS : Draft TRANSCRIBED BY: MODBull DATE: 10/16/16 DATE OF ADMISSION: 10/16/2016 HISTORY OF PRESENT ILLNESS: This is a 66-year-old male, who was recently discharged from the hospital by my colleague on 10/06/2016 with encephalopathy of unclear etiology, but suspect it could be a combination of medications and bipolar disorder. He presented to [facility] because he was found confused and disoriented on the floor. He has a friend. The patient himself lives in [place], but his friend lives in [place], so the patient stays by himself and he did not respond to phone calls for several days. His friend was found him confused, sitting on a couch, covered with feces and being confused, complaining of abdominal pain. The patient cannot recall, but he says he may have nausea or he may have diarrhea, but it is unclear what symptoms he had. He said "I was sick, not doing well for several days." He also blames metformin. He does not like to be on metformin. He said it is probably related to medications. It is unclear how he was taking his medications at home. The patient has some shakiness in his hands and some dysarthria, but he right now is more awake. He denies any chest pain. He is complaining of abdominal pain all over. No shortness of breath. No cough. No fever. He said he was dizzy. He is now aged. His friend said that last admission his medications were changed. The patient also was found to have hypoglycemia. His blood sugar was in 50s on presentation as well. He looks dehydrated. The patient was started on IV fluids in the emergency room. He was given D50 and the blood sugar increased to 150 as well as his potassium was started and he was Hemoccult positive. PAST MEDICAL HISTORY: Collected from the patient's friend since the patient having constantly repetitive speech and has some memory problems, but he has history of bipolar disorder, coronary artery disease, status post stents in his heart, history of congestive heart failure. According to the last discharge summary done by Dr. Zuluaga on 10/06/2016, his ejection fraction improved to 55%. History of Crohn disease, history of encephalopathy of unclear etiology, colonic ileitis, history of pancytopenia with some improvement, history of old strokes including right brain steam and bilateral thalamic strokes, history of previous congestive heart failure with current ejection fraction 55%, history of Crohn disease followed by Dr. Silverman. No active disease now. He was on Humira before hypertension. History of acute kidney injury with hyperkalemia in the past. History of coronary stents, history of chronic shakiness, non-insulin dependent diabetes, hypertension, chronic ataxia possibly secondary to diabetic neuropathy or a brainstem stroke. SURGICAL HISTORY: Hernia repair and cardiac PCI. ALLERGIES: PENICILLIN AND SULFA. HOME MEDICATIONS: Tylenol 650 p.o. q.6 hours p.r.n., Xanax 0.5 four times daily p.r.n., aspirin 81 mg a day, carvedilol 25 p.o. b.i.d., Plavix 75 mg a day, Cymbalta 90 mg a day, glipizide 5 mg p.o. b.i.d., lactulose 30 mg p.o. three times a day, lithium carbonate 675 p.o. daily, metformin 1000 b.i.d., nitroglycerin 0.4 sublingually as needed, Seroquel 50 mg at bedtime, and Crestor 10 mg daily. History And Physical [address] [address] NAME: MCKAY CHU : 54 STATUS : ADM IN PAT#: [id number] AGE: 66 ADM/REG DATE : 10/16/16 MR#: [id number] REPORT SERV DATE: 10/16/16 DICTATED BY: JOSEPH GIBSON DATE: 10/16/16 REPORT STATUS : Draft TRANSCRIBED BY: KIANNA DATE: 10/16/16 SOCIAL HISTORY: The patient denies use of alcohol. He is a smoker, he smokes less than a pack a day. He says he drinks alcohol socially. No recreational drug use. He is retired. He lives by himself. He has a sister and a friend who is at the bedside. FAMILY HISTORY: Mother has bipolar disorder, diabetes, coronary artery disease. Father of Alzheimer disease. REVIEW OF SYSTEMS: 14-point review of systems are negative except what was stated in history of present illness. PHYSICAL EXAMINATION: GENERAL: Well-nourished, well-developed male, not in acute distress. Resting quietly. VITAL SIGNS: Blood pressure 125/56, temperature 98.9, heart rate 68, respirations 16, and oxygen saturation 98 on room air. HEENT: Head atraumatic, normocephalic. Conjunctivae clear. Pupils are equal and reactive to light and accommodation. Extraocular muscles are intact. NECK: Supple. Trachea is midline. No supraclavicular or cervical lymphadenopathy. LUNGS: Clear to auscultation bilaterally. Slightly decreased respiratory effort. CARDIOVASCULAR: Regular rate and rhythm. Point of maximal impulse not displaced. ABDOMEN: Distended, soft. There is a diffuse tenderness to palpation in the periumbilical area. There is no guarding, no rebound. EXTREMITIES: No clubbing, cyanosis, or edema. SKIN: Normal color and turgor. PSYCHIATRIC: Agitated mood and affect. NEUROLOGIC: He is awake. He is alert. Has some memory problems, forgetful, oriented in time, place, and person. He is shaky, has a tremor in his arms and legs, and repetitive speech with some aphasia. LABORATORY RESULTS: Sodium 132, potassium 2.8, chloride 100, carbon dioxide 19, BUN 43, creatinine 4.9, blood sugar 161 after he was given D50. Lipase 344, ALT 20, AST 18. Total bilirubin 0.6. Calcium 8.9. Lactic acid level 1.3. White count 11.9, hemoglobin 11.2, hematocrit 32.9, platelet count 244. He had Hemoccult-positive stool in the ER. UA did not show any evidence of UTI. Chest x-ray is ordered in the ER, but pending. CT of the brain without contrast done in the ER. No evidence of acute intracranial pathology. CT of the abdomen and pelvis done in the emergency room today without contrast, no evidence of acute GI or obstruction. Prostate is mildly enlarged. Cardiac silhouette is enlarged with coronary artery disease. There is however bibasilar infiltrate, question early pneumonia, new presentation from 10/05/2016. Ammonia level was 15. ASSESSMENT AND PLAN: This is a 66-year-old male, who was recently discharged from the hospital with a diagnosis of encephalopathy, unclear etiology, and confusion, presented with 1. Acute kidney injury likely secondary to dehydration, questionable diarrhea. 2. Hypokalemia. 3. Hypoglycemia. 4. Heme-positive stool with abdominal pain with a history of Crohn disease. History And Physical [address] [address] NAME: MCKAY CHU JR : 54 STATUS : ADM IN [facility]#: [id number] AGE: 66 ADM/REG DATE : 10/16/16 MR#: [id number] REPORT SERV DATE: 10/16/16 DICTATED BY: JOSEPH GIBSON DATE: 10/16/16 REPORT STATUS : Draft TRANSCRIBED BY: KIANNA DATE: 10/16/16 5. Confusion with shakiness. We will admit the patient to cardiac telemetry bed. We will start the patient on IV fluid hydration for his acute kidney injury as well as we replace his hypokalemia. 6. Hypoglycemia. We will check his blood sugar every one hour. If blood sugar will be below 80, he will need to receive hypoglycemia protocol with D50. 7. Abdominal pain. We will ask Dr. Silverman to see the patient especially with heme- positive stool and history of Crohn disease. 8. For hypoglycemia and diabetes control, we will ask outreach educator to see the patient. Last time, he refused to see outreach educator. 9. For confusion with a history of bipolar disorder, we will check lithium level because it can also contribute to his tremor and confusion. We will ask Neurology to evaluate this patient. He had complete neurological workup last time, so we will ask to see if there is anything else should be done. 10.Questionable pneumonia on the CT of the abdomen on the lower lobes, question early pneumonia. We put him on intravenous Rocephin. We will also do DuoNeb breathing treatment q.4 hours scheduled and do incentive spirometry. In case of diarrhea, we will check stool studies. 11.We will re-evaluate the patient tomorrow. MG/MODL Joseph Gibson M.D. / [id number] CC: Joseph Gibson M.D.
--- NOTE | ~2016-10-16 | CN ---
Consultation Report [address] [place]. [address] NAME: MCKAY CHU JR : 54 STATUS : ADM IN PAT#: [id number] AGE: 66 ADM/REG DATE : 10/16/16 MR#: [id number] REPORT SERV DATE: 10/18/16 DICTATED BY: SHIV ALFONSO DATE: 10/18/16 REPORT STATUS : Draft TRANSCRIBED BY: MODL DATE: 10/18/16 CONSULTATION DATE OF CONSULTATION: This 66-year-old man whom I am asked to see in Dr. Silverman's absence for abdominal discomfort, diarrhea, history of Crohn disease, occult blood in the stool. He has been seen by Dr. Bob Silverman in the past for Crohn disease, but has had significant medical issues and bipolar disorder that has interrupted his therapy. He took a course of Entocort in 2012. He has really been off therapy including Humira, which he had been on in the past for couple of years. Dr. Silverman saw for recent inpatient hospitalization. He is now with delirium felt to be related to his bipolar disorder and lithium. Psychiatry seen him. He is complaining some pain in the right lower quadrant as well as loose stools. He is mildly anemic and stool is positive for occult blood. He has known ileal stenosis, but there was no evidence of obstruction on CT scan. PAST MEDICAL HISTORY: 1. Crohn disease since 1993 with predominantly ileitis. 2. Ischemic cardiomyopathy. 3. Mitral regurgitation. 4. Bipolar disorder. 5. Hypertension. 6. Type 2 diabetes. PAST SURGICAL HISTORY: Status post coronary stenting. MEDICATIONS: Xanax, Lipitor, Rocephin, insulin, Seroquel, thiamin, Levemir. ALLERGIES: PENICILLIN, SULFA. FAMILY HISTORY: No GI malignancy. SOCIAL HISTORY: No tobacco or alcohol. REVIEW OF SYSTEMS: Otherwise, unremarkable. PHYSICAL EXAMINATION: GENERAL: Adequately nourished, in no acute distress, but somewhat confused. VITAL SIGNS: Afebrile. LUNGS: Clear. ABDOMEN: Soft with mild tenderness in the right lower quadrant. EXTREMITIES: No edema. Consultation Report [address] [place]. [address] NAME: MCKAY CHU JR : 54 STATUS : ADM IN PAT#: [id number] AGE: 66 ADM/REG DATE : 10/16/16 MR#: [id number] REPORT SERV DATE: 10/18/16 DICTATED BY: SHIV ALFONSO DATE: 10/18/16 REPORT STATUS : Draft TRANSCRIBED BY: KIANNA DATE: 10/18/16 LAB: Mildly anemic with hemoglobin of 10.4. BUN 26, creatinine 1.58, magnesium 1.6, sodium 143, potassium 4.2. MRI shows no acute lesions in the head, but he was uncooperative. Abdominal pelvic CT scan shows no evidence of obstruction. IMPRESSION: 1. Known Crohn disease without a lot of evidence of activity recently, but with some known ileal stenosis-it is unclear how much it is inflammatory and how much it is fiber stenotic. 2. Acute delirium related to bipolar disorder and his lithium. 3. Some chronic constipation. 4. Heme-positive stool with mild anemia in a patient on Plavix, but no evidence of gross bleeding. RECOMMENDATIONS: 1. Low residue diet due to the known ileal stenosis. 2. We will begin budesonide 9 mg daily with a plan for an 8 to 12 week course. 3. We will check a C-reactive protein. 4. We will check stool for C. difficile toxin. 5. He is not really a candidate for bowel prep or colonoscopy at this point, but will leave this up to Dr. Silverman. /KIANNA Shiv Alfonso M.D. / [id number] CC: Christopher Sanon M.D.
--- NOTE | ~2016-10-16 | IDS ---
Interim Discharge Summary [facility] [address] [place]. [address] NAME: MCKAY CHU JR : 54 STATUS : ADM IN PAT#: [id number] AGE: 66 ADM/REG DATE : 10/16/16 MR#: [id number] REPORT SERV DATE: 10/20/16 DICTATED BY: JOSEPH GIBSON DATE: 10/20/16 REPORT STATUS : Draft TRANSCRIBED BY: MODL DATE: 10/20/16 ADMISSION DATE: 10/16/2016 DISCHARGE DATE: Date of service provided from 10/16/2016 to 10/20/2016. CURRENT MEDICAL PROBLEMS: 1. Confusion/acute encephalopathy of unclear etiology, present on admission, still going on. Electroencephalography pending. LP ordered by Neurology. 2. Acute kidney injury, present on admission, resolved. 3. Bipolar disorder type 2, managed by Psychiatry. 4. [place] toxicity. [place] discontinued and there is no intention by psychiatric to restart lithium. 5. Diabetes, uncontrolled, with hypoglycemia, present on admission. The patient taken off glipizide and cannot tolerate metformin. Currently, on Levemir and NovoLog sliding scale. 6. Questionable pneumonitis. Clinically, does not have any signs of pneumonia. Antibiotic completed and discontinued. 7. History of Crohn disease in the past. Abdominal pain, present on admission, improved. 8. Heme-positive stool. Evaluated by Dr. Silverman. Dr. Silverman to specify when okay to restart aspirin and Plavix. 9. History of coronary artery disease with history of stents in the past. 10.History of Crohn's disease, history of ileal stenosis in the past. 11.History of chronic ataxia. 12.History of recent hospitalization for confusion and discharged on 10/07/2016. 13.Needs placement. CONSULTANTS ON THE CASE: 1. Neurologist, Dr. Colon. 2. Psychiatrist, Dr. Arriaga. 3. Gastroenterology, Dr. Silverman. For the details of history of present illness, refer to history of present illness dictated by me on 10/16/2016. This is a very pleasant 66-year-old male, who was admitted with acute kidney injury, severe confusion, questionable diarrhea. On admission, his creatinine was 4.9, with IV fluid hydration, it normalized, and today 0.99 as well as he was severely confused. He did know where he is and he did not know the date and time. He is still confused. He is oriented only to self. He does not have severe agitation. He is able to eat and drink. Abdominal pain, present on admission, still having mild abdominal pain and he had heme- positive stool on admission with no obvious GI bleed. His anemia was stable. His hemoglobin was stable at 10.4, so Dr. Silverman needs to specify when he is okay to restart his aspirin and Plavix. He has history of Crohn disease, but according to Dr. Silverman, he is not active so he discontinued the prednisone which was started a day before. Interim Discharge Summary [facility] [address] [facility] [place]. [address] NAME: MCKAY CHU JR : 54 STATUS : ADM IN [facility]#: [id number] AGE: 66 ADM/REG DATE : 10/16/16 MR#: [id number] REPORT SERV DATE: 10/20/16 DICTATED BY: JOSEPH GIBSON DATE: 10/20/16 REPORT STATUS : Draft TRANSCRIBED BY: KIANNA DATE: 10/20/16 Diabetes mellitus, uncontrolled. During last hospitalization, he was placed on glipizide and metformin. He presented with hypoglycemia to the emergency room and he said that he cannot take metformin, so now he is on Levemir with combination of NovoLog. The patient cannot stay by himself and his sister is trying to get him into the placement. Dr. Arriaga is also following this patient. He is not planning to restart his lithium because the lithium level was elevated. So, this patient will need to go to some long-term facility. Otherwise, he cannot stay on his own. I discontinue antibiotic since he completed five days of Rocephin. His CT of the abdomen and pelvis done on 10/16/2016 showed bibasilar infiltrates, question of early pneumonia. I do not think the patient had pneumonia. Clinically, he does not look febrile, no cough, but he completed the antibiotic. Dr. Warren will see this patient starting tomorrow morning. /MODL Joseph Gibson M.D. / [id number] CC: Christopher Sanon, MICHEAL, [facility]-
--- NOTE | ~2016-10-16 | CN ---
Consultation Report [facility] [address] [place]. [address] NAME: MCKAY CHU JR : 54 STATUS : ADM IN PAT#: [id number] AGE: 66 ADM/REG DATE : 10/16/16 MR#: [id number] REPORT SERV DATE: 10/17/16 DICTATED BY: JUANJOSE ENGEL DATE: 10/17/16 REPORT STATUS : Draft TRANSCRIBED BY: MODL DATE: 10/17/16 PSYCHIATRIC CONSULTATION DATE OF CONSULTATION: 10/17/2016 I reviewed this patient's current and old medical records. I discussed patient's status with Dr. Garcia who is his hospitalist. HISTORY OF PRESENT ILLNESS: He was found in a confused and tremulous state by a friend. His blood sugar was in the low 50s. Other lab data included BUN of 40, creatinine of 3.61, GFR of 17, serum lithium of 214, potassium of 2.8. He was complaining of abdominal pain. PAST PSYCHIATRIC HISTORY: I had seen him previously in consultation on two separate occasions. The last consultation was done about two weeks ago, when he was again admitted with confusion of unclear etiology. On that occasion, we stopped his Depakote because he had elevated liver enzymes and other evidence of a fatty liver. He continued to take the lithium carbonate 675 mg at bedtime, Seroquel 50 mg at bedtime, Cymbalta 90 mg daily, Xanax 0.5 mg q.i.d. p.r.n. He said, he usually took only two tablets of Xanax daily. We are now holding the lithium and Cymbalta because of his acute kidney injury. He is followed by Dr. Glass, a psychiatrist as an outpatient. SOCIAL HISTORY: He lives alone in [place], [place]. MENTAL STATUS: He was sitting up in a chair. He continues to show evidence of confusion with disorientation to month and year and a rambling speech. He was oriented to "[facility]." His mood was mildly anxious. His affect was appropriate. He had no delusions. He had no hallucinations. DIAGNOSES: 1. Delirium, of unclear etiology. 2. Bipolar II disorder, by history. RECOMMENDATIONS: His lithium can be permanently discontinued in view of the kidney malfunction. If his kidney function improves during this hospitalization, we can restart the Cymbalta at a reduced dose of 60 mg daily. We can continue the Seroquel 50 mg at bedtime. While he is in the hospital, we can give him a fixed dosing of Xanax at a dose of 0.25 mg b.i.d. and 0.5 mg at bedtime. I will see him for a followup visit on 10/20/2016. INOCENTE/KIANNA Juanjose Engel M.D. Consultation Report [place] [id number] [facility] [address] [place]. [address] NAME: MCKAY CHU : 54 STATUS : ADM IN PAT#: [id number] AGE: 66 ADM/REG DATE : 10/16/16 MR#: [id number] REPORT SERV DATE: 10/17/16 DICTATED BY: JUANJOSE ENGEL DATE: 10/17/16 REPORT STATUS : Draft TRANSCRIBED BY: KIANNA DATE: 10/17/16 / [id number] CC: Bety Garcia M.D.
--- NOTE | ~2016-10-16 | CN ---
Consultation Report [facility] [address] [place]. [address] NAME: MCKAY CHU JR : 54 STATUS : ADM IN PAT#: [id number] AGE: 66 ADM/REG DATE : 10/16/16 MR#: [id number] REPORT SERV DATE: 10/17/16 DICTATED BY: TYRA RODRIGUEZ DATE: 10/17/16 REPORT STATUS : Draft TRANSCRIBED BY: MODBull DATE: 10/17/16 NEUROLOGY CONSULTATION DATE OF CONSULTATION: 10/17/2016 REASON FOR CONSULTATION: Acute encephalopathy, bipolar illness, and tremor. HOSPITALIST: Dr. Carson Garcia. PSYCHIATRIST: Dr. Glass. HISTORY OF PRESENT ILLNESS: The patient is a 66-year-old male, who was hospitalized two weeks ago for acute metabolic encephalopathy of unclear etiology. It was suspected that it was due to a combination of medications and bipolar disorder. He was discharged on the 06 of October and was sent home. The patient had difficulty taking care of himself at home and yesterday he was found unresponsive, was found confused, sitting on his couch covered with feces. He was complaining of abdominal pain. The patient had diarrhea and nausea and stated that he was sick and he had not been doing well for several days. He blamed this on his metformin. He stated that he did not like taking the medication. The patient has been noncompliant with his medications and has been having difficulty taking care of himself. He lives alone. He has one brother and two sisters who check in on him. He also has a friend who lives in [place] who calls frequently. After speaking with the patient's sister, she states that the patient can no longer live by himself because of his bipolar illness and his bouts of confusion. She would like case management to look into his situation to see if possibly he could go to assisted living. 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 PAST SURGICAL HISTORY: Hernia repair and stent placement. MEDICATIONS: Home medication list includes Tylenol p.r.n., Xanax 0.5 mg four times a day p.r.n., aspirin 81 mg daily, Coreg 25 mg twice a day, Plavix 75 mg a day, Cymbalta 90 mg daily, Glucotrol 5 mg a.c. and at bedtime, lactulose 30 mg t.i.d., Eskalith-CR 675 mg at bedtime, metformin 1000 mg b.i.d., nitroglycerin 0.4 mg sublingual, Seroquel 50 mg at bedtime, and Crestor 10 mg daily. ALLERGIES: PENICILLIN AND SULFA. SOCIAL HISTORY: The patient lives alone. He is retired. He is a smoker and social drinker. Consultation Report [place] [id number] [facility] [place]. [address] NAME: MCKAY CHU JR : 54 STATUS : ADM IN [facility]#: [id number] AGE: 66 ADM/REG DATE : 10/16/16 MR#: [id number] REPORT SERV DATE: 10/17/16 DICTATED BY: TYRA RODRIGUEZ DATE: 10/17/16 REPORT STATUS : Draft TRANSCRIBED BY: KIANNA DATE: 10/17/16 FAMILY HISTORY: His mother has bipolar and has diabetes and coronary artery disease. His father from Alzheimer's dementia. He has one brother and one sister, who is healthy, and another sister who has diabetes. REVIEW OF SYSTEMS: Please refer to HPI. PHYSICAL EXAMINATION: VITAL SIGNS: The patient is a 66-year-old male, who stands 5 feet 8 inches tall and weighs 171 pounds. He is afebrile. Heart rate 63, respiratory rate 18, O2 saturations on 3 L nasal cannula 95%, and blood pressure 131/64. NEUROLOGIC: The patient is awake. He is alert. He is confused. He knows that he is at [facility], but is unaware of the time, the date, and calls the president "Dr. [place]." The patient can follow simple one-step commands, but gets confused with two and three-step commands. Pupils are 4 mm. PERRLA. Cranial nerves are relatively intact. He does have nystagmus with lateral and upward gaze. Micjzf-zh-pnut, he has slight ataxia bilaterally. Pronator drift, the patient has a parietal drift on the left. Upper extremity strength is 4/5 bilaterally. No reported sensory deficits. DTRs are 1+ in the upper extremities bilaterally. Lower extremity strength is 4/5 bilaterally. Unable to elicit patellar reflexes. Downgoing toes. No reported sensory deficits. The patient is somewhat ataxic. Has difficulty ambulating without much assistance. NECK: No carotid bruits, JVD, or thyromegaly. CHEST: Lung sounds are relatively clear, diminished in the bases. CARDIAC: Regular rate and rhythm. LABORATORY DATA: CBC is normal. BMP shows a sodium of 132, potassium of 3.4, BUN 40, creatinine 3.61, and glucose 222. Procalcitonin is 3.91. TSH 4.4. [place] 2.14. IMAGING: CT of the abdomen shows basilar infiltrates, questionable pneumonia. CT of the brain, no acute changes. ASSESSMENT/PLAN: 1. Acute metabolic encephalopathy, multifactorial in nature. The patient has lithium toxicity, level is 2.14. The medication has been placed on hold. This is most likely due to acute kidney injury. The patient has acute kidney injury most likely due to his diarrhea and volume depletion. The patient has leukocytosis, etiology unknown. His CT of the abdomen does show basilar infiltrates. The patient has bipolar illness. He is noncompliant with his medications. 2. Tremor and ataxia. This is most likely due to his lithium toxicity, however, I will send him for an MRI of the brain without gadolinium to rule out any structural causes and check additional lab work. PT/OT and case management have been consulted. Thank you again for including us in consultation. Consultation Report [address] [address] NAME: MCKAY CHU : 54 STATUS : ADM IN PAT#: [id number] AGE: 66 ADM/REG DATE : 10/16/16 MR#: [id number] REPORT SERV DATE: 10/17/16 DICTATED BY: TYRA RODRIGUEZ DATE: 10/17/16 REPORT STATUS : Draft TRANSCRIBED BY: KIANNA DATE: 10/17/16 JADYN/KIANNA Tyra Rodriguez DNP, [facility]- / [id number] CC: Christopher Sanon M.D.
[2016-10-16 13:50] LABS: BASOPHILS 0.1 %; BASOPHILS ABSOLUTE 0.01 10/3/uL (0.0-0.16); EOSINOPHILS 0.3 %; EOSINOPHILS ABSOLUTE 0.04 10/3/uL (0.0-0.53); HEMATOCRIT 32.9 % (40.0-51.0); HEMOGLOBIN 11.2 g/dL (13.6-17.8); IMMATURE GRANULOCYTES 0.3 %; IMMATURE GRANULOCYTES ABSOLUTE 0.03 10/3/uL (0.0-0.11); LYMPHOCYTES 10.3 %; LYMPHOCYTES ABSOLUTE 1.22 10/3/uL (0.67-4.30); MEAN CORPUSCULAR HEMOGLOB 28.9 pg (26.0-34.0); MEAN PLATELET VOLUME 9.3 fL (9.2-13.0); MONOCYTES ABSOLUTE 0.71 10/3/uL (0.21-1.20); NEUTROPHILS ABSOLUTE 9.88 10/3/uL (2.02-8.40); PLATELET COUNT 244 10/3/uL (150-400); RED CELL COUNT 3.87 10/6/uL (4.7-6.1)
[2016-10-16 13:51] LABS: ER CBC TAT 0 Hrs 07 Mins; MANUAL DIFF NO %; WHITE BLOOD CELLS 11.9 10/3/uL (4.5-10.5)
[2016-10-16 14:05] LABS: A/G RATIO 0.7 (0.7-1.9); ALBUMIN 2.7 G/DL (3.5-5.0); ALKALINE PHOSPHATASE 176 U/L (45-117); BUN (BLOOD UREA NITROGEN) 43 MG/DL (6-23); CALCIUM, SERUM 8.9 MG/DL (8.5-10.4); CHLORIDE, SERUM 100 MMOL/L (96-112); CO2 (CARBON DIOXIDE) 19 MMOL/L (24-34); GFR AFRICAN AMERICAN 13 ML/MIN (>=60); GFR NON AFRICAN AMERICAN 12 ML/MIN (>=60); GLOBULIN 3.9 G/DL (2.5-4.1); GLUCOSE, SERUM 161 MG/DL (60-99); POTASSIUM, SERUM 2.8 MMOL/L (3.5-5.3); SGOT(AST) 18 U/L (5-40); SGPT(ALT) 20 U/L (5-65); SODIUM, SERUM 132 MMOL/L (135-148); TOTAL BILIRUBIN 0.6 MG/DL (0-1.2); TOTAL PROTEIN 6.6 G/DL (6.0-8.5)
[2016-10-16 14:12] LABS: ASCORBIC ACID (UR NOT ORDER) NEG (NEG); BILIRUBIN, URINE NEGATIVE (NEG); ER URINALYSIS TAT 0 Hrs 09 Mins; KETONE, URINE TRACE MG/DL (NEG); LEUKOCYTE ESTERASE(NOT OR NEG (NEG); NITRITE (URINE) NEG (NEG); WBC (NOT ORDERED) (RFLEX) 5 (0-5)
[~2016-10-16 14:44] MED LIST changes: +CONSTULOSE PO; +COREG25 PO; +CYMBALTA30 PO; +ESKACR PO; +GLUCOPHAGE1000 MG PO; +GLUCOTROL5 PO; +HABIT14 TOP; +HALF81 PO; +NITROSTAT0.4 MG SL; +SEROQUEL50 MG PO; +T PO
[2016-10-16 15:19] LABS: LACTATE 1.3 MMOL/L (0.3-2.4)
[2016-10-16] MEDS ORDERED: AMB10 PO (16:17)
[2016-10-16] MEDS ORDERED: COZAAR100 MG PO (16:18)
[2016-10-16 22:27] LABS: TROPONIN I 0.03 NG/ML (<0.05)
[2016-10-16 22:28] LABS: ULTRASENSITIVE TSH 4.44 MCIU/ML (0.358-3.740)
[2016-10-16 22:54] LABS: PROCALCITONIN 3.91 ng/mL (<0.5)
[2016-10-17 01:03] LABS: POTASSIUM, SERUM 3.1 MMOL/L (3.5-5.3)
[2016-10-17 07:19] LABS: BASOPHILS 0.2 %; BASOPHILS ABSOLUTE 0.02 10/3/uL (0.0-0.16); EOSINOPHILS 1.2 %; HEMATOCRIT 31.7 % (40.0-51.0); HEMOGLOBIN 10.7 g/dL (13.6-17.8); IMMATURE GRANULOCYTES 0.2 %; IMMATURE GRANULOCYTES ABSOLUTE 0.02 10/3/uL (0.0-0.11); LYMPHOCYTES 17.9 %; LYMPHOCYTES ABSOLUTE 1.52 10/3/uL (0.67-4.30); MEAN CORPUS HGB CONC 33.8 g/dL (32.0-36.0); MEAN CORPUSCULAR VOLUME 85.9 fL (80-100); MONOCYTES 6.4 %; MONOCYTES ABSOLUTE 0.54 10/3/uL (0.21-1.20); NEUTROPHILS 74.1 %; NEUTROPHILS ABSOLUTE 6.29 10/3/uL (2.02-8.40); PLATELET COUNT 215 10/3/uL (150-400); RBC DISTRIBUTION WIDTH 12.9 % (12.0-16.0); RED CELL COUNT 3.69 10/6/uL (4.7-6.1); WHITE BLOOD CELLS 8.5 10/3/uL (4.5-10.5)
[2016-10-17 07:24] LABS: BUN (BLOOD UREA NITROGEN) 40 MG/DL (6-23); CALCIUM, SERUM 8.3 MG/DL (8.5-10.4); CHLORIDE, SERUM 109 MMOL/L (96-112); CO2 (CARBON DIOXIDE) 24 MMOL/L (24-34); POTASSIUM, SERUM 3.4 MMOL/L (3.5-5.3); SODIUM, SERUM 137 MMOL/L (135-148)
[2016-10-17 07:25] LABS: MANUAL DIFF NO %
[2016-10-17 07:34] LABS: TROPONIN I 0.02 NG/ML (<0.05)
[2016-10-17 07:35] LABS: CREATININE 3.61 MG/DL (0.70-1.30); GFR AFRICAN AMERICAN 19 ML/MIN (>=60); GFR NON AFRICAN AMERICAN 17 ML/MIN (>=60); GLUCOSE, SERUM 222 MG/DL (60-99)
[2016-10-17 11:48] LABS: C-REACTIVE PROTEIN 21.6 MG/L (<8.0)
[2016-10-17 11:49] LABS: ALBUMIN 2.6 G/DL (3.5-5.0); DIRECT BILIRUBIN 0.1 MG/DL (0.0-0.4); INDIRECT BILIRUBIN(NOT ORDER) 0.3 MG/DL (0.1-0.9); TOTAL BILIRUBIN 0.4 MG/DL (0-1.2); TOTAL PROTEIN 6.4 G/DL (6.0-8.5)
[2016-10-17 12:04] LABS: SED RATE 50 MM/HR (0-15)
[2016-10-18 09:13] LABS: HEMOGLOBIN 10.4 g/dL (13.6-17.8)
[2016-10-18 09:49] LABS: CALCIUM, SERUM 7.9 MG/DL (8.5-10.4); CHLORIDE, SERUM 117 MMOL/L (96-112); SODIUM, SERUM 143 MMOL/L (135-148)
[2016-10-18 09:51] LABS: BUN (BLOOD UREA NITROGEN) 26 MG/DL (6-23); CO2 (CARBON DIOXIDE) 16 MMOL/L (24-34); CREATININE 1.58 MG/DL (0.70-1.30); GFR AFRICAN AMERICAN 53 ML/MIN (>=60); GFR NON AFRICAN AMERICAN 46 ML/MIN (>=60); GLUCOSE, SERUM 177 MG/DL (60-99); POTASSIUM, SERUM 4.2 MMOL/L (3.5-5.3)
[2016-10-18 15:23] LABS: C-REACTIVE PROTEIN 14.9 MG/L (<8.0)
[2016-10-19 07:35] LABS: BUN (BLOOD UREA NITROGEN) 16 MG/DL (6-23); CALCIUM, SERUM 8.3 MG/DL (8.5-10.4); CHLORIDE, SERUM 113 MMOL/L (96-112); CO2 (CARBON DIOXIDE) 16 MMOL/L (24-34); CREATININE 1.18 MG/DL (0.70-1.30); GFR AFRICAN AMERICAN 75 ML/MIN (>=60); GFR NON AFRICAN AMERICAN 65 ML/MIN (>=60); GLUCOSE, SERUM 205 MG/DL (60-99); SODIUM, SERUM 143 MMOL/L (135-148)
[2016-10-19 07:45] LABS: BASOPHILS 0.3 %; BASOPHILS ABSOLUTE 0.02 10/3/uL (0.0-0.16); EOSINOPHILS 2.1 %; EOSINOPHILS ABSOLUTE 0.17 10/3/uL (0.0-0.53); IMMATURE GRANULOCYTES 0.3 %; IMMATURE GRANULOCYTES ABSOLUTE 0.02 10/3/uL (0.0-0.11); LYMPHOCYTES 14.7 %; LYMPHOCYTES ABSOLUTE 1.17 10/3/uL (0.67-4.30); MEAN CORPUS HGB CONC 33.6 g/dL (32.0-36.0); MEAN CORPUSCULAR HEMOGLOB 29.2 pg (26.0-34.0); MEAN CORPUSCULAR VOLUME 86.9 fL (80-100); MEAN PLATELET VOLUME 9.2 fL (9.2-13.0); MONOCYTES 5.5 %; MONOCYTES ABSOLUTE 0.44 10/3/uL (0.21-1.20); NEUTROPHILS 77.1 %; NEUTROPHILS ABSOLUTE 6.14 10/3/uL (2.02-8.40); PLATELET COUNT 249 10/3/uL (150-400); RED CELL COUNT 4.11 10/6/uL (4.7-6.1)
[2016-10-19 07:50] LABS: HEMATOCRIT 35.7 % (40.0-51.0); MANUAL DIFF NO %
[2016-10-20 06:03] LABS: BASOPHILS 0.4 %; BASOPHILS ABSOLUTE 0.02 10/3/uL (0.0-0.16); EOSINOPHILS ABSOLUTE 0.16 10/3/uL (0.0-0.53); HEMOGLOBIN 10.5 g/dL (13.6-17.8); IMMATURE GRANULOCYTES 0.4 %; IMMATURE GRANULOCYTES ABSOLUTE 0.02 10/3/uL (0.0-0.11); LYMPHOCYTES 32.2 %; LYMPHOCYTES ABSOLUTE 1.73 10/3/uL (0.67-4.30); MEAN CORPUS HGB CONC 34.1 g/dL (32.0-36.0); MEAN CORPUSCULAR HEMOGLOB 29.2 pg (26.0-34.0); MEAN CORPUSCULAR VOLUME 85.8 fL (80-100); MEAN PLATELET VOLUME 8.8 fL (9.2-13.0); MONOCYTES 5.9 %; MONOCYTES ABSOLUTE 0.32 10/3/uL (0.21-1.20); NEUTROPHILS 58.1 %; NEUTROPHILS ABSOLUTE 3.13 10/3/uL (2.02-8.40); PLATELET COUNT 229 10/3/uL (150-400); RBC DISTRIBUTION WIDTH 13.1 % (12.0-16.0); RED CELL COUNT 3.59 10/6/uL (4.7-6.1); WHITE BLOOD CELLS 5.4 10/3/uL (4.5-10.5)
[2016-10-20 06:05] LABS: HEMATOCRIT 30.8 % (40.0-51.0); MANUAL DIFF NO %
[2016-10-20 06:13] LABS: CHLORIDE, SERUM 116 MMOL/L (96-112); CO2 (CARBON DIOXIDE) 19 MMOL/L (24-34); CREATININE 0.99 MG/DL (0.70-1.30); GFR AFRICAN AMERICAN 93 ML/MIN (>=60); GFR NON AFRICAN AMERICAN 80 ML/MIN (>=60); GLUCOSE, SERUM 167 MG/DL (60-99); POTASSIUM, SERUM 3.6 MMOL/L (3.5-5.3); SODIUM, SERUM 144 MMOL/L (135-148)
[2016-10-20 06:14] LABS: BUN (BLOOD UREA NITROGEN) 12 MG/DL (6-23)
[2016-10-21 06:34] LABS: BASOPHILS 0.2 %; BASOPHILS ABSOLUTE 0.01 10/3/uL (0.0-0.16); EOSINOPHILS 3.6 %; EOSINOPHILS ABSOLUTE 0.18 10/3/uL (0.0-0.53); HEMATOCRIT 31.1 % (40.0-51.0); HEMOGLOBIN 10.5 g/dL (13.6-17.8); IMMATURE GRANULOCYTES 0.4 %; IMMATURE GRANULOCYTES ABSOLUTE 0.02 10/3/uL (0.0-0.11); LYMPHOCYTES 34.8 %; LYMPHOCYTES ABSOLUTE 1.72 10/3/uL (0.67-4.30); MEAN CORPUS HGB CONC 33.8 g/dL (32.0-36.0); MEAN CORPUSCULAR HEMOGLOB 29.4 pg (26.0-34.0); MEAN CORPUSCULAR VOLUME 87.1 fL (80-100); MEAN PLATELET VOLUME 8.9 fL (9.2-13.0); MONOCYTES 4.9 %; MONOCYTES ABSOLUTE 0.24 10/3/uL (0.21-1.20); NEUTROPHILS 56.1 %; NEUTROPHILS ABSOLUTE 2.77 10/3/uL (2.02-8.40); PLATELET COUNT 208 10/3/uL (150-400); RBC DISTRIBUTION WIDTH 13.3 % (12.0-16.0); RED CELL COUNT 3.57 10/6/uL (4.7-6.1); WHITE BLOOD CELLS 4.9 10/3/uL (4.5-10.5)
[2016-10-21 06:36] LABS: MANUAL DIFF NO %
[2016-10-21 06:49] LABS: BUN (BLOOD UREA NITROGEN) 9 MG/DL (6-23); CALCIUM, SERUM 8.3 MG/DL (8.5-10.4); CHLORIDE, SERUM 114 MMOL/L (96-112); CO2 (CARBON DIOXIDE) 21 MMOL/L (24-34); CREATININE 0.91 MG/DL (0.70-1.30); GFR AFRICAN AMERICAN 103 ML/MIN (>=60); GFR NON AFRICAN AMERICAN 89 ML/MIN (>=60); GLUCOSE, SERUM 226 MG/DL (60-99); POTASSIUM, SERUM 3.5 MMOL/L (3.5-5.3); SODIUM, SERUM 145 MMOL/L (135-148)
[2016-10-21 13:41] LABS: CSF COLOR (NOT ORD) PINK (COLORLESS); CSF XANTHROCHROMIA NEG (NEG)
[2016-10-21 13:42] LABS: CSF APPEARANCE (NOT ORD) CLEAR (CLEAR); CSF RBC (NOT ORD) 1000 MM3 (NO REFERENCE); CSF WBC (NOT ORD) 3 /uL (0-10)
[2016-10-21 13:57] LABS: CSF BASO 0 % (NO REF RANGE); CSF EOS 0 % (0-1); CSF LYMPH (NOT ORD) 63 % (28-96); CSF MONO 13 % (16-56); CSF SEGS (NOT ORD) 25 % (0-7)
[2016-10-22 06:17] LABS: BASOPHILS 0.2 %; BASOPHILS ABSOLUTE 0.01 10/3/uL (0.0-0.16); EOSINOPHILS 3.4 %; EOSINOPHILS ABSOLUTE 0.18 10/3/uL (0.0-0.53); HEMATOCRIT 28.5 % (40.0-51.0); HEMOGLOBIN 9.7 g/dL (13.6-17.8); IMMATURE GRANULOCYTES 0.2 %; IMMATURE GRANULOCYTES ABSOLUTE 0.01 10/3/uL (0.0-0.11); LYMPHOCYTES 32.3 %; LYMPHOCYTES ABSOLUTE 1.71 10/3/uL (0.67-4.30); MANUAL DIFF NO %; MEAN CORPUSCULAR HEMOGLOB 29.7 pg (26.0-34.0); MEAN CORPUSCULAR VOLUME 87.2 fL (80-100); MEAN PLATELET VOLUME 8.8 fL (9.2-13.0); MONOCYTES 4.9 %; MONOCYTES ABSOLUTE 0.26 10/3/uL (0.21-1.20); NEUTROPHILS ABSOLUTE 3.12 10/3/uL (2.02-8.40); PLATELET COUNT 217 10/3/uL (150-400); RBC DISTRIBUTION WIDTH 13.3 % (12.0-16.0); RED CELL COUNT 3.27 10/6/uL (4.7-6.1); WHITE BLOOD CELLS 5.3 10/3/uL (4.5-10.5)
[2016-10-22 06:27] LABS: BUN (BLOOD UREA NITROGEN) 7 MG/DL (6-23); CALCIUM, SERUM 8.4 MG/DL (8.5-10.4); CHLORIDE, SERUM 112 MMOL/L (96-112); CO2 (CARBON DIOXIDE) 24 MMOL/L (24-34); CREATININE 0.93 MG/DL (0.70-1.30); GFR AFRICAN AMERICAN 100 ML/MIN (>=60); GFR NON AFRICAN AMERICAN 86 ML/MIN (>=60); GLUCOSE, SERUM 236 MG/DL (60-99); POTASSIUM, SERUM 3.5 MMOL/L (3.5-5.3); SODIUM, SERUM 143 MMOL/L (135-148)
[2016-10-22 10:03] LABS: PROCALCITONIN 0.09 ng/mL (<0.5)
[2016-10-23 09:02] LABS: BUN (BLOOD UREA NITROGEN) 6 MG/DL (6-23); CALCIUM, SERUM 8.4 MG/DL (8.5-10.4); CHLORIDE, SERUM 111 MMOL/L (96-112); CO2 (CARBON DIOXIDE) 25 MMOL/L (24-34); CREATININE 0.81 MG/DL (0.70-1.30); GFR AFRICAN AMERICAN 109 ML/MIN (>=60); GFR NON AFRICAN AMERICAN 94 ML/MIN (>=60); GLUCOSE, SERUM 223 MG/DL (60-99); POTASSIUM, SERUM 3.9 MMOL/L (3.5-5.3); SODIUM, SERUM 142 MMOL/L (135-148)
[2016-10-23 13:50] LABS: HSV DNA TYPE 1 Not Detected (NOTDET); HSV DNA TYPE 2 Not Detected (NOTDET)
[2016-10-24 11:58] LABS: BASOPHILS 0.2 %; BASOPHILS ABSOLUTE 0.01 10/3/uL (0.0-0.16); EOSINOPHILS 2.9 %; EOSINOPHILS ABSOLUTE 0.15 10/3/uL (0.0-0.53); HEMOGLOBIN 11.5 g/dL (13.6-17.8); IMMATURE GRANULOCYTES 0.2 %; IMMATURE GRANULOCYTES ABSOLUTE 0.01 10/3/uL (0.0-0.11); LYMPHOCYTES 26.7 %; MEAN CORPUS HGB CONC 32.6 g/dL (32.0-36.0); MEAN CORPUSCULAR HEMOGLOB 28.5 pg (26.0-34.0); MEAN CORPUSCULAR VOLUME 87.6 fL (80-100); MEAN PLATELET VOLUME 8.5 fL (9.2-13.0); MONOCYTES 4.8 %; MONOCYTES ABSOLUTE 0.25 10/3/uL (0.21-1.20); NEUTROPHILS 65.2 %; NEUTROPHILS ABSOLUTE 3.43 10/3/uL (2.02-8.40); PLATELET COUNT 232 10/3/uL (150-400); RBC DISTRIBUTION WIDTH 13.7 % (12.0-16.0); WHITE BLOOD CELLS 5.3 10/3/uL (4.5-10.5)
[2016-10-24 11:59] LABS: HEMATOCRIT 35.3 % (40.0-51.0); MANUAL DIFF NO %; RED CELL COUNT 4.03 10/6/uL (4.7-6.1)
[2016-10-24 12:15] LABS: A/G RATIO 0.8 (0.7-1.9); ALKALINE PHOSPHATASE 197 U/L (45-117); BUN (BLOOD UREA NITROGEN) 6 MG/DL (6-23); CHLORIDE, SERUM 108 MMOL/L (96-112); CO2 (CARBON DIOXIDE) 27 MMOL/L (24-34); CREATININE 0.98 MG/DL (0.70-1.30); GFR AFRICAN AMERICAN 94 ML/MIN (>=60); GFR NON AFRICAN AMERICAN 81 ML/MIN (>=60); GLOBULIN 3.9 G/DL (2.5-4.1); GLUCOSE, SERUM 201 MG/DL (60-99); POTASSIUM, SERUM 4.3 MMOL/L (3.5-5.3); SGOT(AST) 14 U/L (5-40); SGPT(ALT) 22 U/L (5-65); SODIUM, SERUM 141 MMOL/L (135-148); TOTAL BILIRUBIN 0.5 MG/DL (0-1.2); TOTAL PROTEIN 6.9 G/DL (6.0-8.5)
== END 2016-10-27 13:08 | DRG 70 ==
LOC: ER 14:44 → 2SO 17:17
PROVIDERS: Hospitalist; Nurse Practitioner; Nurse Practitioner Family; Student in an Organized Health Care Education/Training Program
PROC: 009U3ZX Drainage of Spinal Canal, Percutaneous Approach, Diagnostic (ICD-10-PCS; principal; 2016-10-21)
PROC: B01B1ZZ Fluoroscopy of Spinal Cord using Low Osmolar Contrast (ICD-10-PCS; 2016-10-21)
DX: G93.41 Metabolic encephalopathy (principal); J18.9 Pneumonia, unspecified organism; N17.9 Acute kidney failure, unspecified; I50.32 Chronic diastolic (congestive) heart failure; K50.90 Crohn's disease, unspecified, without complications; E11.65 Type 2 diabetes mellitus with hyperglycemia; E83.42 Hypomagnesemia; E86.0 Dehydration; T56.891A Toxic effect of other metals, accidental (unintentional), initial encounter; E16.2 Hypoglycemia, unspecified; E87.6 Hypokalemia; F31.9 Bipolar disorder, unspecified; I25.10 Atherosclerotic heart disease of native coronary artery without angina pectoris; F17.210 Nicotine dependence, cigarettes, uncomplicated; I25.5 Ischemic cardiomyopathy; I34.0 Nonrheumatic mitral (valve) insufficiency; R48.2 Apraxia; Z88.0 Allergy status to penicillin; Z88.2 Allergy status to sulfonamides; Z95.5 Presence of coronary angioplasty implant and graft; Z83.3 Family history of diabetes mellitus; Z82.49 Family history of ischemic heart disease and other diseases of the circulatory system; Z98.890 Other specified postprocedural states; Y92.009 Unspecified place in unspecified non-institutional (private) residence as the place of occurrence of the external cause
CPT/HCPCS: 62270; 70450; 70551-52; 71010; 74000; 74176; 76775; 77003; 80048; 80053; 80076; 80178; 81001; 82140; 82550; 82945; 82947; 82962; 83036; 83605; 83690; 83735; 84132; 84145; 84157; 84443; 84484; 85014; 85018; 85025; 85652; 86140; 86592; 87040; 87070; 87205; 87210; 87327; 87529; 87529-59; 88112; 89051; 93005; 94640; 95816; 96374; 96375; 97110-GP; 97116-GP; 97162-GP; 97165-GO; 97535-GO; 99285; A9270-GY; G8978-CK-GP; G8979-CK-GP; G8980-CK-GP; G8987-CK-GO; G8988-CJ-GO; J0456; J3475; J3486